=== PATIENT | female | born 1950 | race American Indian/Alaskan Native ===

== ENCOUNTER 2016-12-03 08:57 | Outpatient (CLI) | payer MEDICARE ==
[2016-12-03] MEDS ORDERED: XYLOCAINE TOPICAL 4% TP ONE ×2 (09:16→15:47)
== END 2016-12-03 08:58 | disposition home or self-care (01) ==
LOC: WOUND 08:57
PROVIDERS: ATTEND Orthopaedic Surgery
DX: L02.31 Cutaneous abscess of buttock (principal); E11.9 Type 2 diabetes mellitus without complications; I25.10 Atherosclerotic heart disease of native coronary artery without angina pectoris; I10 Essential (primary) hypertension; Z87.891 Personal history of nicotine dependence

== ENCOUNTER 2016-12-07 09:09 | Outpatient (CLI) | payer MEDICARE ==
[2016-12-07] MEDS ORDERED: XYLOCAINE TOPICAL 4% TP ONE ×2 (09:53→10:04)
== END 2016-12-07 09:10 | disposition home or self-care (01) ==
LOC: WOUND 09:09
PROVIDERS: ATTEND Orthopaedic Surgery
DX: L02.31 Cutaneous abscess of buttock (principal); E11.9 Type 2 diabetes mellitus without complications; I25.10 Atherosclerotic heart disease of native coronary artery without angina pectoris; I10 Essential (primary) hypertension; Z87.891 Personal history of nicotine dependence

== ENCOUNTER 2016-12-14 09:26 | Outpatient (CLI) | payer MEDICARE ==
[2016-12-14] MEDS ORDERED: XYLOCAINE TOPICAL 2% TP ONE ×2 (09:52→14:12)
== END 2016-12-14 09:27 | disposition home or self-care (01) ==
LOC: WOUND 09:26
PROVIDERS: ATTEND Orthopaedic Surgery
DX: L02.31 Cutaneous abscess of buttock (principal); K61.1 Rectal abscess; E11.9 Type 2 diabetes mellitus without complications; I10 Essential (primary) hypertension; I25.10 Atherosclerotic heart disease of native coronary artery without angina pectoris; Z87.891 Personal history of nicotine dependence

== ENCOUNTER 2016-12-28 09:17 | Outpatient (CLI) | payer MEDICARE ==
[2016-12-28] MEDS ORDERED: XYLOCAINE TOPICAL 2% TP ONE ×2 (09:46→12:18)
== END 2016-12-28 09:18 | disposition home or self-care (01) ==
LOC: WOUND 09:17
PROVIDERS: ATTEND Internal Medicine
DX: L02.212 Cutaneous abscess of back [any part, except buttock and flank] (principal); L89.304 Pressure ulcer of unspecified buttock, stage 4; E11.9 Type 2 diabetes mellitus without complications; I10 Essential (primary) hypertension; E66.01 Morbid (severe) obesity due to excess calories; K59.00 Constipation, unspecified; I25.10 Atherosclerotic heart disease of native coronary artery without angina pectoris; E78.5 Hyperlipidemia, unspecified; Z87.891 Personal history of nicotine dependence

== ENCOUNTER 2017-01-04 09:03 | Outpatient (CLI) | payer MEDICARE ==
[2017-01-04] MEDS ORDERED: XYLOCAINE TOPICAL 2% TP ONE ×2 (09:21→11:18)
== END 2017-01-04 09:04 | disposition home or self-care (01) ==
LOC: WOUND 09:03
PROVIDERS: ATTEND Internal Medicine
DX: K61.1 Rectal abscess (principal); L89.304 Pressure ulcer of unspecified buttock, stage 4; I10 Essential (primary) hypertension; E08.8 Diabetes mellitus due to underlying condition with unspecified complications; E66.01 Morbid (severe) obesity due to excess calories; K59.00 Constipation, unspecified; I25.10 Atherosclerotic heart disease of native coronary artery without angina pectoris; E78.5 Hyperlipidemia, unspecified; Z87.891 Personal history of nicotine dependence

== ENCOUNTER 2017-01-11 09:12 | Outpatient (CLI) | payer MEDICARE ==
[2017-01-11] MEDS ORDERED: XYLOCAINE TOPICAL 4% TP ONE ×2 (10:25→10:29)
== END 2017-01-11 09:13 | disposition home or self-care (01) ==
LOC: WOUND 09:12
PROVIDERS: ATTEND Internal Medicine
DX: L89.304 Pressure ulcer of unspecified buttock, stage 4 (principal); I10 Essential (primary) hypertension; E08.8 Diabetes mellitus due to underlying condition with unspecified complications; E66.01 Morbid (severe) obesity due to excess calories; K59.00 Constipation, unspecified; K61.1 Rectal abscess; I25.10 Atherosclerotic heart disease of native coronary artery without angina pectoris; E78.2 Mixed hyperlipidemia; Z87.891 Personal history of nicotine dependence

== ENCOUNTER 2017-01-18 09:26 | Outpatient (CLI) | payer MEDICARE ==
[2017-01-18] MEDS ORDERED: XYLOCAINE TOPICAL 4% TP ONE ×2 (10:07→16:10)
== END 2017-01-18 09:27 | disposition home or self-care (01) ==
LOC: WOUND 09:26
PROVIDERS: ATTEND Internal Medicine
DX: L89.304 Pressure ulcer of unspecified buttock, stage 4 (principal); E08.8 Diabetes mellitus due to underlying condition with unspecified complications; I10 Essential (primary) hypertension; E66.01 Morbid (severe) obesity due to excess calories; K59.00 Constipation, unspecified; I25.10 Atherosclerotic heart disease of native coronary artery without angina pectoris; E78.2 Mixed hyperlipidemia; Z87.891 Personal history of nicotine dependence

== ENCOUNTER 2017-01-25 09:00 | Outpatient (CLI) | payer MEDICARE ==
[2017-01-25] MEDS ORDERED: XYLOCAINE TOPICAL 4% TP ONE ×2 (09:15→10:00)
== END 2017-01-25 09:01 | disposition home or self-care (01) ==
LOC: WOUND 09:00
PROVIDERS: ATTEND Internal Medicine
DX: L02.31 Cutaneous abscess of buttock (principal); E66.01 Morbid (severe) obesity due to excess calories; I10 Essential (primary) hypertension; E11.9 Type 2 diabetes mellitus without complications; I25.10 Atherosclerotic heart disease of native coronary artery without angina pectoris; E78.5 Hyperlipidemia, unspecified; Z87.891 Personal history of nicotine dependence

== ENCOUNTER 2017-02-08 09:04 | Outpatient (CLI) | payer MEDICARE ==
[2017-02-08] MEDS ORDERED: XYLOCAINE TOPICAL 4% TP ONE ×2 (09:19→10:12)
== END 2017-02-08 09:05 | disposition home or self-care (01) ==
LOC: WOUND 09:04
PROVIDERS: ATTEND Internal Medicine
DX: L89.304 Pressure ulcer of unspecified buttock, stage 4 (principal); K61.1 Rectal abscess; I10 Essential (primary) hypertension; E66.01 Morbid (severe) obesity due to excess calories; K59.00 Constipation, unspecified; I25.10 Atherosclerotic heart disease of native coronary artery without angina pectoris; E78.2 Mixed hyperlipidemia; Z87.891 Personal history of nicotine dependence

== ENCOUNTER 2017-02-17 08:56 | Outpatient (CLI) | payer MEDICARE ==
[2017-02-17] MEDS ORDERED: XYLOCAINE TOPICAL 4% TP ONE ×2 (09:13→10:00)
== END 2017-02-17 08:57 | disposition home or self-care (01) ==
LOC: WOUND 08:56
PROVIDERS: ATTEND Internal Medicine
DX: K61.1 Rectal abscess (principal); L89.304 Pressure ulcer of unspecified buttock, stage 4; E66.01 Morbid (severe) obesity due to excess calories; I25.10 Atherosclerotic heart disease of native coronary artery without angina pectoris; E78.5 Hyperlipidemia, unspecified; I10 Essential (primary) hypertension; Z87.891 Personal history of nicotine dependence

== ENCOUNTER 2017-02-22 09:03 | Outpatient (CLI) | payer MEDICARE ==
[2017-02-22] MEDS ORDERED: XYLOCAINE TOPICAL 2% ONE (10:12)
[2017-02-22] MEDS ORDERED: XYLOCAINE TOPICAL 2% TP ONE (10:40)
== END 2017-02-22 09:04 | disposition home or self-care (01) ==
LOC: WOUND 09:03
PROVIDERS: ATTEND Internal Medicine
DX: L02.31 Cutaneous abscess of buttock (principal); E11.9 Type 2 diabetes mellitus without complications; I10 Essential (primary) hypertension; E66.01 Morbid (severe) obesity due to excess calories; L89.304 Pressure ulcer of unspecified buttock, stage 4; K59.00 Constipation, unspecified; I25.10 Atherosclerotic heart disease of native coronary artery without angina pectoris; E78.5 Hyperlipidemia, unspecified

== ENCOUNTER 2017-03-01 09:07 | Outpatient (CLI) | payer MEDICARE ==
[2017-03-01] MEDS ORDERED: XYLOCAINE TOPICAL 2% ONE (09:10)
== END 2017-03-01 09:08 | disposition home or self-care (01) ==
LOC: WOUND 09:07
PROVIDERS: ATTEND Internal Medicine
DX: K61.1 Rectal abscess (principal); L89.304 Pressure ulcer of unspecified buttock, stage 4; I10 Essential (primary) hypertension; E08.8 Diabetes mellitus due to underlying condition with unspecified complications; E66.01 Morbid (severe) obesity due to excess calories; K59.00 Constipation, unspecified; I25.10 Atherosclerotic heart disease of native coronary artery without angina pectoris; E78.5 Hyperlipidemia, unspecified; Z87.891 Personal history of nicotine dependence

== ENCOUNTER 2017-03-08 09:21 | Outpatient (CLI) | payer MEDICARE ==
[2017-03-08] MEDS ORDERED: XYLOCAINE TOPICAL 2% TP ONE ×2 (10:13→10:37)
== END 2017-03-08 09:22 | disposition home or self-care (01) ==
LOC: WOUND 09:21
PROVIDERS: ATTEND Internal Medicine
DX: L02.31 Cutaneous abscess of buttock (principal); I10 Essential (primary) hypertension; L89.304 Pressure ulcer of unspecified buttock, stage 4; E66.01 Morbid (severe) obesity due to excess calories; I25.10 Atherosclerotic heart disease of native coronary artery without angina pectoris; E78.5 Hyperlipidemia, unspecified; Z87.891 Personal history of nicotine dependence

== ENCOUNTER 2017-03-17 08:52 | Outpatient (CLI) | payer MEDICARE ==
--- NOTE | 2017-03-17 10:49 | Mammography Report ---
BILATERAL MAMMOGRAM with CAD: HISTORY:Cancer screening. Comparison study is dated September 24, 2014. FINDINGS: The breasts are almost entirely fat (<25% glandular). No mass, distortion, suspicious calcification, or skin change is seen. A few bilateral calcifications are stable and demonstrate benign radiographic features. A small nodular asymmetry seen in the lower medial left breast on the previous study has resolved. IMPRESSION: Negative mammogram. There is no mammographic evidence of malignancy. RECOMMENDATION: Follow-up per ACS guidelines. BI-RADS CATEGORY: 1 = Negative ACR BI-RADS MAMMOGRAPHIC CODES: 0 = Needs additional imaging evaluation; 1 = Negative; 2 = Benign; 3 = Probably benign; 4 = Suspicious; 5 = Malignant; 6 = Known biopsy-proven malignancy COMMENT: 1. Dense breast tissue, i.e., adenosis, fibrocystic changes, etc., may obscure an underlying neoplasm. 2. Approximately 10% of cancers are not detected with mammography. 3. A negative mammography report should not delay biopsy if a clinically suspicious mass is present. COMMENT: Patient follow-up letters are generated in [employer].
== END 2017-03-17 08:53 | disposition home or self-care (01) ==
LOC: MAMMO 08:52
PROVIDERS: ATTEND Internal Medicine
DX: Z12.31 Encounter for screening mammogram for malignant neoplasm of breast (principal)
CPT/HCPCS: 77067; G0202

== ENCOUNTER 2017-03-22 09:15 | Outpatient (CLI) | payer MEDICARE ==
[2017-03-22] MEDS ORDERED: XYLOCAINE TOPICAL 2% ONE (09:22)
[2017-03-22] MEDS ORDERED: SILVER NITRATE TP ONE ×2 (09:43→17:30)
[2017-03-22] MEDS ORDERED: XYLOCAINE TOPICAL 2% TP ONE (17:29)
[2017-03-24] MEDS ORDERED: SILVER NITRATE TP ONE (15:33)
== END 2017-03-22 09:16 | disposition home or self-care (01) ==
LOC: WOUND 09:15
PROVIDERS: ATTEND Surgery
DX: L02.31 Cutaneous abscess of buttock (principal); K61.1 Rectal abscess; L89.304 Pressure ulcer of unspecified buttock, stage 4; I10 Essential (primary) hypertension; E66.01 Morbid (severe) obesity due to excess calories; K59.00 Constipation, unspecified; E11.9 Type 2 diabetes mellitus without complications; I25.10 Atherosclerotic heart disease of native coronary artery without angina pectoris; E78.5 Hyperlipidemia, unspecified; Z87.891 Personal history of nicotine dependence
CPT/HCPCS: 17250

== ENCOUNTER 2017-03-29 09:13 | Outpatient (CLI) | payer MEDICARE ==
[2017-03-29] MEDS ORDERED: XYLOCAINE TOPICAL 4% TP ONE ×2 (09:26→09:47)
== END 2017-03-29 09:14 | disposition home or self-care (01) ==
LOC: WOUND 09:13
PROVIDERS: ATTEND Internal Medicine
DX: K61.1 Rectal abscess (principal); L89.304 Pressure ulcer of unspecified buttock, stage 4; E66.01 Morbid (severe) obesity due to excess calories; K59.00 Constipation, unspecified; E11.9 Type 2 diabetes mellitus without complications; I25.10 Atherosclerotic heart disease of native coronary artery without angina pectoris; I10 Essential (primary) hypertension; E78.5 Hyperlipidemia, unspecified; K59.09 Other constipation; Z90.710 Acquired absence of both cervix and uterus; Z87.891 Personal history of nicotine dependence

== ENCOUNTER 2017-04-05 09:41 | Outpatient (CLI) | payer MEDICARE ==
[2017-04-05] MEDS ORDERED: XYLOCAINE TOPICAL 4% TP ONE ×2 (10:15→10:41)
== END 2017-04-05 09:42 | disposition home or self-care (01) ==
LOC: WOUND 09:41
PROVIDERS: ATTEND Internal Medicine
DX: K61.1 Rectal abscess (principal); L89.304 Pressure ulcer of unspecified buttock, stage 4; E66.01 Morbid (severe) obesity due to excess calories; E11.9 Type 2 diabetes mellitus without complications; I10 Essential (primary) hypertension; I25.10 Atherosclerotic heart disease of native coronary artery without angina pectoris; E78.5 Hyperlipidemia, unspecified; Z68.33 Body mass index [BMI] 33.0-33.9, adult; Z87.891 Personal history of nicotine dependence

== ENCOUNTER 2017-04-12 08:52 | Outpatient (CLI) | payer MEDICARE ==
[2017-04-12] MEDS ORDERED: XYLOCAINE TOPICAL 4% TP ONE ×2 (09:10→09:29)
== END 2017-04-12 08:53 | disposition home or self-care (01) ==
LOC: WOUND 08:52
PROVIDERS: ATTEND Internal Medicine
DX: L89.324 Pressure ulcer of left buttock, stage 4 (principal); E66.01 Morbid (severe) obesity due to excess calories; K59.00 Constipation, unspecified; E11.622 Type 2 diabetes mellitus with other skin ulcer; I25.10 Atherosclerotic heart disease of native coronary artery without angina pectoris; E78.5 Hyperlipidemia, unspecified; K59.09 Other constipation; I10 Essential (primary) hypertension; Z90.710 Acquired absence of both cervix and uterus; Z87.891 Personal history of nicotine dependence

== ENCOUNTER 2017-04-17 10:42 | Outpatient (CLI) | payer MEDICARE ==
--- NOTE | 2017-04-17 13:41 | Magnetic Resonance Report ---
MRI SACRUM WITHOUT CONTRAST: 04/17/17 CLINICAL: Low back pain and suspected osteomyelitis of the sacrum. COMPARISON :CT abdomen and pelvis without contrast 04/09/16 TECHNIQUE: Sagittal and coronal T1 and sagittal, coronal and axial T2 fat sat sequences on a 1.5 Lola magnet without contrast. FINDINGS: The coccyx has either been surgically resected or has lysed. A sacral decubitus ulcer extends to the sacrum which terminates just inferior to the fourth sacral foramina. The overall marrow signal of the sacrum is normal. No marrow edema or fracture. No fluid collection or abscess. A right gluteal soft tissue ulcer extends to the sacrum and has mild hyperintense signal on the T2 fat-sat sequence. It also extends anterior to the presacral space where there is hyperintense signal but no fluid collection to suggest an abscess. IMPRESSION: Absence of the coccyx and the distal portion of the sacrum but no definitive signs of osteomyelitis. A sacral decubitus ulcer with mild inflammatory changes in the soft tissue but no abscess.
== END 2017-04-17 10:43 | disposition home or self-care (01) ==
LOC: MRI 10:42
PROVIDERS: ATTEND Internal Medicine
DX: M54.9 Dorsalgia, unspecified (principal)
CPT/HCPCS: 72195

== ENCOUNTER 2017-04-19 08:50 | Outpatient (CLI) | payer MEDICARE ==
[2017-04-19] MEDS ORDERED: XYLOCAINE TOPICAL 4% TP ONE ×3 (08:56→09:06)
== END 2017-04-19 08:51 | disposition home or self-care (01) ==
LOC: WOUND 08:50
PROVIDERS: ATTEND Surgery
DX: L89.304 Pressure ulcer of unspecified buttock, stage 4 (principal); E11.9 Type 2 diabetes mellitus without complications; I25.10 Atherosclerotic heart disease of native coronary artery without angina pectoris; E78.5 Hyperlipidemia, unspecified; E66.01 Morbid (severe) obesity due to excess calories; I10 Essential (primary) hypertension; Z68.33 Body mass index [BMI] 33.0-33.9, adult; Z87.891 Personal history of nicotine dependence

== ENCOUNTER 2017-05-10 09:14 | Outpatient (CLI) | payer MEDICARE ==
[2017-05-10] MEDS ORDERED: XYLOCAINE TOPICAL 4% TP ONE (09:34)
== END 2017-05-10 09:15 | disposition home or self-care (01) ==
LOC: WOUND 09:14
PROVIDERS: ATTEND Internal Medicine
DX: L89.324 Pressure ulcer of left buttock, stage 4 (principal); E66.01 Morbid (severe) obesity due to excess calories; I25.10 Atherosclerotic heart disease of native coronary artery without angina pectoris; E78.5 Hyperlipidemia, unspecified; I10 Essential (primary) hypertension; M46.28 Osteomyelitis of vertebra, sacral and sacrococcygeal region; Z68.33 Body mass index [BMI] 33.0-33.9, adult; Z87.891 Personal history of nicotine dependence

== ENCOUNTER 2017-05-17 09:05 | Outpatient (CLI) | payer MEDICARE ==
[2017-05-17] MEDS ORDERED: XYLOCAINE TOPICAL 4% TP ONE (09:11)
== END 2017-05-17 09:06 | disposition home or self-care (01) ==
LOC: WOUND 09:05
PROVIDERS: ATTEND Internal Medicine
DX: L89.324 Pressure ulcer of left buttock, stage 4 (principal); E66.01 Morbid (severe) obesity due to excess calories; I25.10 Atherosclerotic heart disease of native coronary artery without angina pectoris; E78.5 Hyperlipidemia, unspecified; E11.69 Type 2 diabetes mellitus with other specified complication; M46.28 Osteomyelitis of vertebra, sacral and sacrococcygeal region; I10 Essential (primary) hypertension; Z68.33 Body mass index [BMI] 33.0-33.9, adult; Z87.891 Personal history of nicotine dependence
CPT/HCPCS: 97605

== ENCOUNTER 2017-05-24 09:07 | Outpatient (CLI) | payer MEDICARE ==
[2017-05-24] MEDS ORDERED: XYLOCAINE TOPICAL 4% TP ONE (09:32)
== END 2017-05-24 09:08 | disposition home or self-care (01) ==
LOC: WOUND 09:07
PROVIDERS: ATTEND Internal Medicine
DX: E11.622 Type 2 diabetes mellitus with other skin ulcer (principal); L89.304 Pressure ulcer of unspecified buttock, stage 4; E66.01 Morbid (severe) obesity due to excess calories; I25.10 Atherosclerotic heart disease of native coronary artery without angina pectoris; E78.5 Hyperlipidemia, unspecified; E11.69 Type 2 diabetes mellitus with other specified complication; M86.38 Chronic multifocal osteomyelitis, other site; M46.28 Osteomyelitis of vertebra, sacral and sacrococcygeal region; I10 Essential (primary) hypertension; Z90.710 Acquired absence of both cervix and uterus; Z68.33 Body mass index [BMI] 33.0-33.9, adult; Z87.891 Personal history of nicotine dependence
CPT/HCPCS: 97605

== ENCOUNTER 2017-05-31 09:14 | Outpatient (CLI) | payer MEDICARE ==
[2017-05-31] MEDS ORDERED: XYLOCAINE TOPICAL 2% TP ONE (09:54)
[2017-05-31] MEDS ORDERED: XYLOCAINE TOPICAL 2% ONE (10:00)
== END 2017-05-31 09:15 | disposition home or self-care (01) ==
LOC: WOUND 09:14
PROVIDERS: ATTEND Internal Medicine
DX: L02.31 Cutaneous abscess of buttock (principal); E11.622 Type 2 diabetes mellitus with other skin ulcer; L98.491 Non-pressure chronic ulcer of skin of other sites limited to breakdown of skin; L89.304 Pressure ulcer of unspecified buttock, stage 4; E11.69 Type 2 diabetes mellitus with other specified complication; M46.28 Osteomyelitis of vertebra, sacral and sacrococcygeal region; I10 Essential (primary) hypertension; E66.01 Morbid (severe) obesity due to excess calories; K59.00 Constipation, unspecified; I25.10 Atherosclerotic heart disease of native coronary artery without angina pectoris; E78.5 Hyperlipidemia, unspecified; Z90.710 Acquired absence of both cervix and uterus; Z87.891 Personal history of nicotine dependence
CPT/HCPCS: 99214; G0463

== ENCOUNTER 2017-06-07 09:16 | Outpatient (CLI) | payer MEDICARE ==
[2017-06-07] MEDS ORDERED: XYLOCAINE TOPICAL 4% TP ONE (11:00)
== END 2017-06-07 09:17 | disposition home or self-care (01) ==
LOC: WOUND 09:16
PROVIDERS: ATTEND Internal Medicine
DX: L89.304 Pressure ulcer of unspecified buttock, stage 4 (principal); E66.01 Morbid (severe) obesity due to excess calories; I25.10 Atherosclerotic heart disease of native coronary artery without angina pectoris; E78.5 Hyperlipidemia, unspecified; I10 Essential (primary) hypertension; Z68.33 Body mass index [BMI] 33.0-33.9, adult; Z90.710 Acquired absence of both cervix and uterus; Z87.891 Personal history of nicotine dependence

== ENCOUNTER 2017-06-21 09:00 | Outpatient (CLI) | payer MEDICARE ==
[2017-06-21] MEDS ORDERED: XYLOCAINE TOPICAL 4% TP ONE ×2 (09:14→09:42)
== END 2017-06-21 09:01 | disposition home or self-care (01) ==
LOC: WOUND 09:00
PROVIDERS: ATTEND Internal Medicine
DX: E11.622 Type 2 diabetes mellitus with other skin ulcer (principal); L98.491 Non-pressure chronic ulcer of skin of other sites limited to breakdown of skin; L89.154 Pressure ulcer of sacral region, stage 4; L02.31 Cutaneous abscess of buttock; E66.01 Morbid (severe) obesity due to excess calories; I25.10 Atherosclerotic heart disease of native coronary artery without angina pectoris; E78.5 Hyperlipidemia, unspecified; E11.69 Type 2 diabetes mellitus with other specified complication; M86.38 Chronic multifocal osteomyelitis, other site; M46.28 Osteomyelitis of vertebra, sacral and sacrococcygeal region; I10 Essential (primary) hypertension; Z68.33 Body mass index [BMI] 33.0-33.9, adult; Z90.710 Acquired absence of both cervix and uterus; Z87.891 Personal history of nicotine dependence

== ENCOUNTER 2017-06-28 09:20 | Outpatient (CLI) | payer MEDICARE ==
[2017-06-28] MEDS ORDERED: XYLOCAINE TOPICAL 4% TP ONE (10:06)
== END 2017-06-28 09:21 | disposition home or self-care (01) ==
LOC: WOUND 09:20
PROVIDERS: ATTEND Internal Medicine
DX: E11.622 Type 2 diabetes mellitus with other skin ulcer (principal); L98.491 Non-pressure chronic ulcer of skin of other sites limited to breakdown of skin; L89.304 Pressure ulcer of unspecified buttock, stage 4; K61.1 Rectal abscess; E11.69 Type 2 diabetes mellitus with other specified complication; M46.28 Osteomyelitis of vertebra, sacral and sacrococcygeal region; K59.00 Constipation, unspecified; E66.01 Morbid (severe) obesity due to excess calories; L89.159 Pressure ulcer of sacral region, unspecified stage; I25.10 Atherosclerotic heart disease of native coronary artery without angina pectoris; I10 Essential (primary) hypertension; E78.5 Hyperlipidemia, unspecified; Z68.1 Body mass index [BMI] 19.9 or less, adult; Z90.710 Acquired absence of both cervix and uterus; Z87.891 Personal history of nicotine dependence

== ENCOUNTER 2017-07-12 09:20 | Outpatient (CLI) | payer MEDICARE ==
[2017-07-12] MEDS ORDERED: XYLOCAINE TOPICAL 4% TP ONE ×2 (09:41→09:47)
== END 2017-07-12 09:21 | disposition home or self-care (01) ==
LOC: WOUND 09:20
PROVIDERS: ATTEND Internal Medicine
DX: E11.622 Type 2 diabetes mellitus with other skin ulcer (principal); L98.491 Non-pressure chronic ulcer of skin of other sites limited to breakdown of skin; L89.304 Pressure ulcer of unspecified buttock, stage 4; E66.01 Morbid (severe) obesity due to excess calories; I25.10 Atherosclerotic heart disease of native coronary artery without angina pectoris; E78.5 Hyperlipidemia, unspecified; I10 Essential (primary) hypertension; Z90.710 Acquired absence of both cervix and uterus; Z68.35 Body mass index [BMI] 35.0-35.9, adult; Z87.891 Personal history of nicotine dependence

== ENCOUNTER 2017-08-16 09:54 | Outpatient (CLI) | payer MEDICARE ==
[2017-08-16] MEDS ORDERED: XYLOCAINE TOPICAL 4% TP ONE ×2 (10:13→10:22)
== END 2017-08-16 09:55 | disposition home or self-care (01) ==
LOC: WOUND 09:54
PROVIDERS: ATTEND Internal Medicine
DX: L02.31 Cutaneous abscess of buttock (principal); K61.1 Rectal abscess; K59.00 Constipation, unspecified; E66.01 Morbid (severe) obesity due to excess calories; I10 Essential (primary) hypertension; E11.69 Type 2 diabetes mellitus with other specified complication; M86.38 Chronic multifocal osteomyelitis, other site; M46.28 Osteomyelitis of vertebra, sacral and sacrococcygeal region; I25.10 Atherosclerotic heart disease of native coronary artery without angina pectoris; E78.5 Hyperlipidemia, unspecified; Z90.710 Acquired absence of both cervix and uterus; Z87.891 Personal history of nicotine dependence

== ENCOUNTER 2017-08-23 08:59 | Outpatient (CLI) | payer MEDICARE ==
[2017-08-23] MEDS ORDERED: XYLOCAINE TOPICAL 4% TP ONE ×2 (09:16→09:17)
== END 2017-08-23 09:00 | disposition home or self-care (01) ==
LOC: WOUND 08:59
PROVIDERS: ATTEND Internal Medicine
DX: E11.622 Type 2 diabetes mellitus with other skin ulcer (principal); L98.491 Non-pressure chronic ulcer of skin of other sites limited to breakdown of skin; L89.304 Pressure ulcer of unspecified buttock, stage 4; E66.01 Morbid (severe) obesity due to excess calories; I25.10 Atherosclerotic heart disease of native coronary artery without angina pectoris; E78.5 Hyperlipidemia, unspecified; I10 Essential (primary) hypertension; Z90.710 Acquired absence of both cervix and uterus; Z68.37 Body mass index [BMI] 37.0-37.9, adult; Z87.891 Personal history of nicotine dependence

== ENCOUNTER 2017-08-30 09:12 | Outpatient (CLI) | payer MEDICARE ==
[2017-08-30] MEDS ORDERED: XYLOCAINE TOPICAL 4% TP ONE ×2 (09:39→17:00)
== END 2017-08-30 09:13 | disposition home or self-care (01) ==
LOC: WOUND 09:12
PROVIDERS: ATTEND Internal Medicine
DX: K61.1 Rectal abscess (principal); E66.01 Morbid (severe) obesity due to excess calories; E11.69 Type 2 diabetes mellitus with other specified complication; M86.38 Chronic multifocal osteomyelitis, other site; M46.28 Osteomyelitis of vertebra, sacral and sacrococcygeal region; E78.5 Hyperlipidemia, unspecified; I25.10 Atherosclerotic heart disease of native coronary artery without angina pectoris; I10 Essential (primary) hypertension; Z68.31 Body mass index [BMI] 31.0-31.9, adult; Z90.710 Acquired absence of both cervix and uterus; Z87.891 Personal history of nicotine dependence

== ENCOUNTER 2017-08-30 13:13 | Outpatient (CLI) | payer MEDICARE ==
--- NOTE | 2017-08-30 14:33 | XRay Report ---
Chest 2 views: History: Preop. Findings: Normal cardiomediastinal silhouette. Trachea is midline. No consolidation, pneumothorax or pleural effusion. Impression: No acute cardiopulmonary findings.
== END 2017-08-30 13:14 | disposition home or self-care (01) ==
LOC: XRAY 13:13
PROVIDERS: ATTEND Internal Medicine
DX: Z01.818 Encounter for other preprocedural examination (principal)
CPT/HCPCS: 71020

== ENCOUNTER 2017-09-01 09:44 | Outpatient (CLI) | payer MEDICARE | END 2017-09-01 09:45 | disposition home or self-care (01) | LOC: WOUND 09:44 | PROVIDERS: ATTEND Surgery | DX: E11.622 Type 2 diabetes mellitus with other skin ulcer (principal); L98.411 Non-pressure chronic ulcer of buttock limited to breakdown of skin; L89.324 Pressure ulcer of left buttock, stage 4; E66.01 Morbid (severe) obesity due to excess calories; Z68.1 Body mass index [BMI] 19.9 or less, adult; I10 Essential (primary) hypertension; K59.00 Constipation, unspecified; E11.69 Type 2 diabetes mellitus with other specified complication; M86.68 Other chronic osteomyelitis, other site; I25.10 Atherosclerotic heart disease of native coronary artery without angina pectoris; E78.5 Hyperlipidemia, unspecified; M46.28 Osteomyelitis of vertebra, sacral and sacrococcygeal region; Z87.891 Personal history of nicotine dependence; Z90.710 Acquired absence of both cervix and uterus | CPT/HCPCS: 82962; G0277; 99183 ==

== ENCOUNTER 2017-09-02 09:35 | Outpatient (CLI) | payer MEDICARE | END 2017-09-02 09:36 | disposition home or self-care (01) | LOC: WOUND 09:35 | PROVIDERS: ATTEND Nurse Practitioner | DX: E11.622 Type 2 diabetes mellitus with other skin ulcer (principal); L98.491 Non-pressure chronic ulcer of skin of other sites limited to breakdown of skin; L89.304 Pressure ulcer of unspecified buttock, stage 4; E66.01 Morbid (severe) obesity due to excess calories; I25.10 Atherosclerotic heart disease of native coronary artery without angina pectoris; E78.5 Hyperlipidemia, unspecified; I10 Essential (primary) hypertension; E11.69 Type 2 diabetes mellitus with other specified complication; M86.38 Chronic multifocal osteomyelitis, other site; M46.28 Osteomyelitis of vertebra, sacral and sacrococcygeal region; Z68.37 Body mass index [BMI] 37.0-37.9, adult; Z90.710 Acquired absence of both cervix and uterus; Z87.891 Personal history of nicotine dependence | CPT/HCPCS: 82962; G0277; 99183 ==

== ENCOUNTER 2017-09-03 09:40 | Outpatient (CLI) | payer MEDICARE | END 2017-09-03 09:41 | disposition home or self-care (01) | LOC: WOUND 09:40 | PROVIDERS: ATTEND Podiatrist | DX: E11.622 Type 2 diabetes mellitus with other skin ulcer (principal); L98.411 Non-pressure chronic ulcer of buttock limited to breakdown of skin; L89.304 Pressure ulcer of unspecified buttock, stage 4; E66.01 Morbid (severe) obesity due to excess calories; E11.69 Type 2 diabetes mellitus with other specified complication; M86.38 Chronic multifocal osteomyelitis, other site; M46.28 Osteomyelitis of vertebra, sacral and sacrococcygeal region; I25.10 Atherosclerotic heart disease of native coronary artery without angina pectoris; I10 Essential (primary) hypertension; E78.5 Hyperlipidemia, unspecified; Z68.37 Body mass index [BMI] 37.0-37.9, adult; Z90.710 Acquired absence of both cervix and uterus; Z87.891 Personal history of nicotine dependence | CPT/HCPCS: 82962; G0277; 99183 ==

== ENCOUNTER 2017-09-06 09:28 | Outpatient (CLI) | payer MEDICARE ==
[2017-09-06] MEDS ORDERED: XYLOCAINE TOPICAL 4% TP ONE ×2 (10:02→10:07)
== END 2017-09-06 09:29 | disposition home or self-care (01) ==
LOC: WOUND 09:28
PROVIDERS: ATTEND Internal Medicine
DX: E11.622 Type 2 diabetes mellitus with other skin ulcer (principal); L98.411 Non-pressure chronic ulcer of buttock limited to breakdown of skin; L89.304 Pressure ulcer of unspecified buttock, stage 4; E66.01 Morbid (severe) obesity due to excess calories; I10 Essential (primary) hypertension; I25.10 Atherosclerotic heart disease of native coronary artery without angina pectoris; Z68.37 Body mass index [BMI] 37.0-37.9, adult; Z90.710 Acquired absence of both cervix and uterus; Z87.891 Personal history of nicotine dependence

== ENCOUNTER 2017-09-08 09:47 | Outpatient (CLI) | payer MEDICARE | END 2017-09-08 09:48 | disposition home or self-care (01) | LOC: WOUND 09:47 | PROVIDERS: ATTEND Surgery | DX: E11.622 Type 2 diabetes mellitus with other skin ulcer (principal); L98.411 Non-pressure chronic ulcer of buttock limited to breakdown of skin; L89.304 Pressure ulcer of unspecified buttock, stage 4; E66.01 Morbid (severe) obesity due to excess calories; I10 Essential (primary) hypertension; E11.69 Type 2 diabetes mellitus with other specified complication; M86.38 Chronic multifocal osteomyelitis, other site; M46.28 Osteomyelitis of vertebra, sacral and sacrococcygeal region; I25.10 Atherosclerotic heart disease of native coronary artery without angina pectoris; E78.5 Hyperlipidemia, unspecified; Z68.37 Body mass index [BMI] 37.0-37.9, adult; Z90.710 Acquired absence of both cervix and uterus; Z87.891 Personal history of nicotine dependence | CPT/HCPCS: 82962; G0277; 99183 ==

== ENCOUNTER 2017-09-09 09:47 | Outpatient (CLI) | payer MEDICARE | END 2017-09-09 09:48 | disposition home or self-care (01) | LOC: WOUND 09:47 | PROVIDERS: ATTEND Nurse Practitioner | DX: E11.622 Type 2 diabetes mellitus with other skin ulcer (principal); L98.411 Non-pressure chronic ulcer of buttock limited to breakdown of skin; L89.304 Pressure ulcer of unspecified buttock, stage 4; E66.01 Morbid (severe) obesity due to excess calories; I10 Essential (primary) hypertension; E11.69 Type 2 diabetes mellitus with other specified complication; M86.38 Chronic multifocal osteomyelitis, other site; M46.28 Osteomyelitis of vertebra, sacral and sacrococcygeal region; I25.10 Atherosclerotic heart disease of native coronary artery without angina pectoris; E78.5 Hyperlipidemia, unspecified; Z68.37 Body mass index [BMI] 37.0-37.9, adult; Z90.710 Acquired absence of both cervix and uterus; Z87.891 Personal history of nicotine dependence | CPT/HCPCS: 82962; G0277; 99183 ==

== ENCOUNTER 2017-09-13 09:39 | Outpatient (CLI) | payer MEDICARE ==
[2017-09-13] MEDS ORDERED: XYLOCAINE TOPICAL 4% TP ONE ×2 (09:54→10:00)
== END 2017-09-13 09:40 | disposition home or self-care (01) ==
LOC: WOUND 09:39
PROVIDERS: ATTEND Internal Medicine
DX: E11.622 Type 2 diabetes mellitus with other skin ulcer (principal); L98.411 Non-pressure chronic ulcer of buttock limited to breakdown of skin; L89.304 Pressure ulcer of unspecified buttock, stage 4; I10 Essential (primary) hypertension; E66.01 Morbid (severe) obesity due to excess calories; K59.00 Constipation, unspecified; E11.69 Type 2 diabetes mellitus with other specified complication; M86.38 Chronic multifocal osteomyelitis, other site; M46.28 Osteomyelitis of vertebra, sacral and sacrococcygeal region; I25.10 Atherosclerotic heart disease of native coronary artery without angina pectoris; Z90.710 Acquired absence of both cervix and uterus; Z87.891 Personal history of nicotine dependence
CPT/HCPCS: 11042; 82962; G0277; 99183

== ENCOUNTER 2017-09-14 09:35 | Outpatient (CLI) | payer MEDICARE | END 2017-09-14 09:36 | disposition home or self-care (01) | LOC: WOUND 09:35 | PROVIDERS: ATTEND Surgery | DX: E11.622 Type 2 diabetes mellitus with other skin ulcer (principal); L98.411 Non-pressure chronic ulcer of buttock limited to breakdown of skin; L89.324 Pressure ulcer of left buttock, stage 4; I10 Essential (primary) hypertension; K59.00 Constipation, unspecified; E66.01 Morbid (severe) obesity due to excess calories; E11.69 Type 2 diabetes mellitus with other specified complication; M86.38 Chronic multifocal osteomyelitis, other site; M46.28 Osteomyelitis of vertebra, sacral and sacrococcygeal region; K61.1 Rectal abscess; I25.10 Atherosclerotic heart disease of native coronary artery without angina pectoris; E78.5 Hyperlipidemia, unspecified; Z87.891 Personal history of nicotine dependence; Z90.710 Acquired absence of both cervix and uterus | CPT/HCPCS: 82962; G0277; 99183 ==

== ENCOUNTER 2017-09-15 09:22 | Outpatient (CLI) | payer MEDICARE | END 2017-09-15 09:23 | disposition home or self-care (01) | LOC: WOUND 09:22 | PROVIDERS: ATTEND Surgery | DX: E11.622 Type 2 diabetes mellitus with other skin ulcer (principal); L98.491 Non-pressure chronic ulcer of skin of other sites limited to breakdown of skin; L89.304 Pressure ulcer of unspecified buttock, stage 4; E66.01 Morbid (severe) obesity due to excess calories; E11.69 Type 2 diabetes mellitus with other specified complication; M86.38 Chronic multifocal osteomyelitis, other site; M46.28 Osteomyelitis of vertebra, sacral and sacrococcygeal region; I25.10 Atherosclerotic heart disease of native coronary artery without angina pectoris; E78.5 Hyperlipidemia, unspecified; I10 Essential (primary) hypertension; Z68.37 Body mass index [BMI] 37.0-37.9, adult; Z90.710 Acquired absence of both cervix and uterus; Z87.891 Personal history of nicotine dependence | CPT/HCPCS: 82962; G0277; 99183 ==

== ENCOUNTER 2017-09-16 09:53 | Outpatient (CLI) | payer MEDICARE | END 2017-09-16 09:54 | disposition home or self-care (01) | LOC: WOUND 09:53 | PROVIDERS: ATTEND Surgery | DX: E11.622 Type 2 diabetes mellitus with other skin ulcer (principal); L98.491 Non-pressure chronic ulcer of skin of other sites limited to breakdown of skin; L89.304 Pressure ulcer of unspecified buttock, stage 4; E66.01 Morbid (severe) obesity due to excess calories; E11.69 Type 2 diabetes mellitus with other specified complication; M86.38 Chronic multifocal osteomyelitis, other site; M46.28 Osteomyelitis of vertebra, sacral and sacrococcygeal region; I10 Essential (primary) hypertension; I25.10 Atherosclerotic heart disease of native coronary artery without angina pectoris; E78.5 Hyperlipidemia, unspecified; Z68.37 Body mass index [BMI] 37.0-37.9, adult; Z90.710 Acquired absence of both cervix and uterus; Z87.891 Personal history of nicotine dependence | CPT/HCPCS: 82962; G0277; 99183 ==

== ENCOUNTER 2017-09-17 09:30 | Outpatient (CLI) | payer MEDICARE | END 2017-09-17 09:31 | disposition home or self-care (01) | LOC: WOUND 09:30 | PROVIDERS: ATTEND Podiatrist | DX: E11.622 Type 2 diabetes mellitus with other skin ulcer (principal); L98.491 Non-pressure chronic ulcer of skin of other sites limited to breakdown of skin; L89.304 Pressure ulcer of unspecified buttock, stage 4; E66.01 Morbid (severe) obesity due to excess calories; E11.69 Type 2 diabetes mellitus with other specified complication; M86.38 Chronic multifocal osteomyelitis, other site; M46.28 Osteomyelitis of vertebra, sacral and sacrococcygeal region; I25.10 Atherosclerotic heart disease of native coronary artery without angina pectoris; E78.5 Hyperlipidemia, unspecified; I10 Essential (primary) hypertension; Z68.37 Body mass index [BMI] 37.0-37.9, adult; Z90.710 Acquired absence of both cervix and uterus; Z87.891 Personal history of nicotine dependence | CPT/HCPCS: 82962; G0277; 99183 ==

== ENCOUNTER 2017-09-20 09:41 | Outpatient (CLI) | payer MEDICARE ==
[2017-09-20] MEDS ORDERED: XYLOCAINE TOPICAL 4% TP ONE (10:00)
== END 2017-09-20 09:42 | disposition home or self-care (01) ==
LOC: WOUND 09:41
PROVIDERS: ATTEND Internal Medicine
DX: E11.622 Type 2 diabetes mellitus with other skin ulcer (principal); L98.491 Non-pressure chronic ulcer of skin of other sites limited to breakdown of skin; L89.304 Pressure ulcer of unspecified buttock, stage 4; E66.01 Morbid (severe) obesity due to excess calories; I10 Essential (primary) hypertension; E11.69 Type 2 diabetes mellitus with other specified complication; M86.38 Chronic multifocal osteomyelitis, other site; M46.28 Osteomyelitis of vertebra, sacral and sacrococcygeal region; I25.10 Atherosclerotic heart disease of native coronary artery without angina pectoris; E78.5 Hyperlipidemia, unspecified; Z68.37 Body mass index [BMI] 37.0-37.9, adult; Z90.710 Acquired absence of both cervix and uterus; Z87.891 Personal history of nicotine dependence
CPT/HCPCS: 11042; 82962; G0277; 99183

== ENCOUNTER 2017-09-21 09:32 | Outpatient (CLI) | payer MEDICARE | END 2017-09-21 09:33 | disposition home or self-care (01) | LOC: WOUND 09:32 | PROVIDERS: ATTEND Surgery | DX: E11.622 Type 2 diabetes mellitus with other skin ulcer (principal); L98.491 Non-pressure chronic ulcer of skin of other sites limited to breakdown of skin; L89.304 Pressure ulcer of unspecified buttock, stage 4; E66.01 Morbid (severe) obesity due to excess calories; E11.69 Type 2 diabetes mellitus with other specified complication; M86.38 Chronic multifocal osteomyelitis, other site; M46.28 Osteomyelitis of vertebra, sacral and sacrococcygeal region; I25.10 Atherosclerotic heart disease of native coronary artery without angina pectoris; I10 Essential (primary) hypertension; E78.5 Hyperlipidemia, unspecified; Z68.37 Body mass index [BMI] 37.0-37.9, adult | CPT/HCPCS: 82962; G0277; 99183 ==

== ENCOUNTER 2017-09-22 09:35 | Outpatient (CLI) | payer MEDICARE | END 2017-09-22 09:36 | disposition home or self-care (01) | LOC: WOUND 09:35 | PROVIDERS: ATTEND Surgery | DX: E11.622 Type 2 diabetes mellitus with other skin ulcer (principal); L98.491 Non-pressure chronic ulcer of skin of other sites limited to breakdown of skin; L89.304 Pressure ulcer of unspecified buttock, stage 4; E66.01 Morbid (severe) obesity due to excess calories; I25.10 Atherosclerotic heart disease of native coronary artery without angina pectoris; E78.5 Hyperlipidemia, unspecified; E11.69 Type 2 diabetes mellitus with other specified complication; M46.28 Osteomyelitis of vertebra, sacral and sacrococcygeal region; M86.38 Chronic multifocal osteomyelitis, other site; I10 Essential (primary) hypertension; Z68.37 Body mass index [BMI] 37.0-37.9, adult; Z90.710 Acquired absence of both cervix and uterus; Z87.891 Personal history of nicotine dependence | CPT/HCPCS: 82962; G0277; 99183 ==

== ENCOUNTER 2017-09-24 09:36 | Outpatient (CLI) | payer MEDICARE | END 2017-09-24 09:37 | disposition home or self-care (01) | LOC: WOUND 09:36 | PROVIDERS: ATTEND Podiatrist | DX: E11.622 Type 2 diabetes mellitus with other skin ulcer (principal); L98.411 Non-pressure chronic ulcer of buttock limited to breakdown of skin; L89.304 Pressure ulcer of unspecified buttock, stage 4; E66.01 Morbid (severe) obesity due to excess calories; I10 Essential (primary) hypertension; I25.10 Atherosclerotic heart disease of native coronary artery without angina pectoris; E78.5 Hyperlipidemia, unspecified; E11.69 Type 2 diabetes mellitus with other specified complication; M46.28 Osteomyelitis of vertebra, sacral and sacrococcygeal region; M86.38 Chronic multifocal osteomyelitis, other site; Z68.37 Body mass index [BMI] 37.0-37.9, adult; Z90.710 Acquired absence of both cervix and uterus; Z87.891 Personal history of nicotine dependence | CPT/HCPCS: 82962; G0277; 99183 ==

== ENCOUNTER 2017-09-28 09:31 | Outpatient (CLI) | payer MEDICARE | END 2017-09-28 09:32 | disposition home or self-care (01) | LOC: WOUND 09:31 | PROVIDERS: ATTEND Surgery | DX: E11.622 Type 2 diabetes mellitus with other skin ulcer (principal); L98.411 Non-pressure chronic ulcer of buttock limited to breakdown of skin; L89.304 Pressure ulcer of unspecified buttock, stage 4; E66.01 Morbid (severe) obesity due to excess calories; I25.10 Atherosclerotic heart disease of native coronary artery without angina pectoris; E11.69 Type 2 diabetes mellitus with other specified complication; M86.38 Chronic multifocal osteomyelitis, other site; M46.28 Osteomyelitis of vertebra, sacral and sacrococcygeal region; I10 Essential (primary) hypertension; Z90.710 Acquired absence of both cervix and uterus; Z68.37 Body mass index [BMI] 37.0-37.9, adult; Z87.891 Personal history of nicotine dependence | CPT/HCPCS: 82962; G0277; 99183 ==

== ENCOUNTER 2017-09-29 09:33 | Outpatient (CLI) | payer MEDICARE | END 2017-09-29 09:34 | disposition home or self-care (01) | LOC: WOUND 09:33 | PROVIDERS: ATTEND Surgery | DX: E11.622 Type 2 diabetes mellitus with other skin ulcer (principal); L98.491 Non-pressure chronic ulcer of skin of other sites limited to breakdown of skin; L89.304 Pressure ulcer of unspecified buttock, stage 4; E66.01 Morbid (severe) obesity due to excess calories; E11.69 Type 2 diabetes mellitus with other specified complication; M86.38 Chronic multifocal osteomyelitis, other site; M46.28 Osteomyelitis of vertebra, sacral and sacrococcygeal region; I25.10 Atherosclerotic heart disease of native coronary artery without angina pectoris; E78.5 Hyperlipidemia, unspecified; I10 Essential (primary) hypertension; Z68.37 Body mass index [BMI] 37.0-37.9, adult; Z90.710 Acquired absence of both cervix and uterus; Z87.891 Personal history of nicotine dependence | CPT/HCPCS: 82962; G0277; 99183 ==

== ENCOUNTER 2017-10-08 09:40 | Outpatient (CLI) | payer MEDICARE | END 2017-10-08 09:41 | disposition home or self-care (01) | LOC: WOUND 09:40 | PROVIDERS: ATTEND Internal Medicine | DX: E11.622 Type 2 diabetes mellitus with other skin ulcer (principal); L98.411 Non-pressure chronic ulcer of buttock limited to breakdown of skin; L89.304 Pressure ulcer of unspecified buttock, stage 4; E66.01 Morbid (severe) obesity due to excess calories; I10 Essential (primary) hypertension; E11.69 Type 2 diabetes mellitus with other specified complication; M86.38 Chronic multifocal osteomyelitis, other site; M46.28 Osteomyelitis of vertebra, sacral and sacrococcygeal region; I25.10 Atherosclerotic heart disease of native coronary artery without angina pectoris; E78.5 Hyperlipidemia, unspecified; Z68.37 Body mass index [BMI] 37.0-37.9, adult | CPT/HCPCS: 82962; G0277; 99183 ==

== ENCOUNTER 2017-10-11 09:32 | Outpatient (CLI) | payer MEDICARE ==
[2017-10-11] MEDS ORDERED: XYLOCAINE TOPICAL 4% TP ONE (10:32)
== END 2017-10-11 09:33 | disposition home or self-care (01) ==
LOC: WOUND 09:32
PROVIDERS: ATTEND Internal Medicine
DX: E11.622 Type 2 diabetes mellitus with other skin ulcer (principal); L98.491 Non-pressure chronic ulcer of skin of other sites limited to breakdown of skin; L89.304 Pressure ulcer of unspecified buttock, stage 4; E66.01 Morbid (severe) obesity due to excess calories; E11.69 Type 2 diabetes mellitus with other specified complication; M86.38 Chronic multifocal osteomyelitis, other site; M46.28 Osteomyelitis of vertebra, sacral and sacrococcygeal region; I10 Essential (primary) hypertension; Z68.37 Body mass index [BMI] 37.0-37.9, adult
CPT/HCPCS: 11042; 82962; G0277; 99183

== ENCOUNTER 2017-10-12 09:33 | Outpatient (CLI) | payer MEDICARE | END 2017-10-12 09:34 | disposition home or self-care (01) | LOC: WOUND 09:33 | PROVIDERS: ATTEND Surgery | DX: E11.622 Type 2 diabetes mellitus with other skin ulcer (principal); L98.411 Non-pressure chronic ulcer of buttock limited to breakdown of skin; L89.304 Pressure ulcer of unspecified buttock, stage 4; E66.01 Morbid (severe) obesity due to excess calories; E11.69 Type 2 diabetes mellitus with other specified complication; M86.38 Chronic multifocal osteomyelitis, other site; M46.28 Osteomyelitis of vertebra, sacral and sacrococcygeal region; I25.10 Atherosclerotic heart disease of native coronary artery without angina pectoris; I10 Essential (primary) hypertension; E78.5 Hyperlipidemia, unspecified; Z68.37 Body mass index [BMI] 37.0-37.9, adult; Z90.710 Acquired absence of both cervix and uterus; Z87.891 Personal history of nicotine dependence | CPT/HCPCS: 82962; G0277; 99183 ==

== ENCOUNTER 2017-10-14 09:51 | Outpatient (CLI) | payer MEDICARE | END 2017-10-14 09:52 | disposition home or self-care (01) | LOC: WOUND 09:51 | PROVIDERS: ATTEND Surgery | DX: E11.622 Type 2 diabetes mellitus with other skin ulcer (principal); L98.411 Non-pressure chronic ulcer of buttock limited to breakdown of skin; L89.304 Pressure ulcer of unspecified buttock, stage 4; E66.01 Morbid (severe) obesity due to excess calories; I25.10 Atherosclerotic heart disease of native coronary artery without angina pectoris; E78.5 Hyperlipidemia, unspecified; I10 Essential (primary) hypertension; E11.69 Type 2 diabetes mellitus with other specified complication; M86.38 Chronic multifocal osteomyelitis, other site; M46.28 Osteomyelitis of vertebra, sacral and sacrococcygeal region; Z90.710 Acquired absence of both cervix and uterus; Z87.891 Personal history of nicotine dependence | CPT/HCPCS: 82962; G0277; 99183 ==

== ENCOUNTER 2017-10-15 09:39 | Outpatient (CLI) | payer MEDICARE | END 2017-10-15 09:40 | disposition home or self-care (01) | LOC: WOUND 09:39 | PROVIDERS: ATTEND Internal Medicine | DX: E11.622 Type 2 diabetes mellitus with other skin ulcer (principal); L98.411 Non-pressure chronic ulcer of buttock limited to breakdown of skin; L89.304 Pressure ulcer of unspecified buttock, stage 4; E66.01 Morbid (severe) obesity due to excess calories; E11.69 Type 2 diabetes mellitus with other specified complication; I10 Essential (primary) hypertension; M86.38 Chronic multifocal osteomyelitis, other site; M46.28 Osteomyelitis of vertebra, sacral and sacrococcygeal region; E78.5 Hyperlipidemia, unspecified; Z68.37 Body mass index [BMI] 37.0-37.9, adult; Z90.710 Acquired absence of both cervix and uterus; Z87.891 Personal history of nicotine dependence | CPT/HCPCS: 82962; G0277; 99183 ==

== ENCOUNTER 2017-10-18 09:32 | Outpatient (CLI) | payer MEDICARE ==
[2017-10-18] MEDS ORDERED: XYLOCAINE TOPICAL 4% TP ONE (10:01)
== END 2017-10-18 09:33 | disposition home or self-care (01) ==
LOC: WOUND 09:32
PROVIDERS: ATTEND Internal Medicine
DX: E11.622 Type 2 diabetes mellitus with other skin ulcer (principal); L98.411 Non-pressure chronic ulcer of buttock limited to breakdown of skin; L89.304 Pressure ulcer of unspecified buttock, stage 4; E66.01 Morbid (severe) obesity due to excess calories; I10 Essential (primary) hypertension; E11.69 Type 2 diabetes mellitus with other specified complication; M86.38 Chronic multifocal osteomyelitis, other site; M46.28 Osteomyelitis of vertebra, sacral and sacrococcygeal region; I25.10 Atherosclerotic heart disease of native coronary artery without angina pectoris; E78.5 Hyperlipidemia, unspecified; Z90.710 Acquired absence of both cervix and uterus; Z68.37 Body mass index [BMI] 37.0-37.9, adult; Z87.891 Personal history of nicotine dependence
CPT/HCPCS: 11042; 82962; G0277; 99183

== ENCOUNTER 2017-10-19 09:40 | Outpatient (CLI) | payer MEDICARE | END 2017-10-19 09:41 | disposition home or self-care (01) | LOC: WOUND 09:40 | PROVIDERS: ATTEND Surgery | DX: E11.622 Type 2 diabetes mellitus with other skin ulcer (principal); L98.491 Non-pressure chronic ulcer of skin of other sites limited to breakdown of skin; L89.304 Pressure ulcer of unspecified buttock, stage 4; E11.69 Type 2 diabetes mellitus with other specified complication; E66.01 Morbid (severe) obesity due to excess calories; M86.38 Chronic multifocal osteomyelitis, other site; M46.28 Osteomyelitis of vertebra, sacral and sacrococcygeal region; I10 Essential (primary) hypertension; I25.10 Atherosclerotic heart disease of native coronary artery without angina pectoris; E78.5 Hyperlipidemia, unspecified; Z90.710 Acquired absence of both cervix and uterus; Z68.37 Body mass index [BMI] 37.0-37.9, adult; Z87.891 Personal history of nicotine dependence | CPT/HCPCS: 82962; G0277; 99183 ==

== ENCOUNTER 2017-10-20 09:45 | Outpatient (CLI) | payer MEDICARE | END 2017-10-20 09:46 | disposition home or self-care (01) | LOC: WOUND 09:45 | PROVIDERS: ATTEND Surgery | DX: E11.622 Type 2 diabetes mellitus with other skin ulcer (principal); L98.411 Non-pressure chronic ulcer of buttock limited to breakdown of skin; E66.01 Morbid (severe) obesity due to excess calories; L89.304 Pressure ulcer of unspecified buttock, stage 4; E11.69 Type 2 diabetes mellitus with other specified complication; M86.38 Chronic multifocal osteomyelitis, other site; M46.28 Osteomyelitis of vertebra, sacral and sacrococcygeal region; I25.10 Atherosclerotic heart disease of native coronary artery without angina pectoris; E78.5 Hyperlipidemia, unspecified; I10 Essential (primary) hypertension; Z68.37 Body mass index [BMI] 37.0-37.9, adult; Z90.710 Acquired absence of both cervix and uterus; Z87.891 Personal history of nicotine dependence | CPT/HCPCS: 82962; G0277; 99183 ==

== ENCOUNTER 2017-10-25 09:34 | Outpatient (CLI) | payer MEDICARE ==
[2017-10-25] MEDS ORDERED: XYLOCAINE TOPICAL 4% TP ONE (09:41)
== END 2017-10-25 09:35 | disposition home or self-care (01) ==
LOC: WOUND 09:34
PROVIDERS: ATTEND Internal Medicine
DX: E11.622 Type 2 diabetes mellitus with other skin ulcer (principal); L98.411 Non-pressure chronic ulcer of buttock limited to breakdown of skin; L89.304 Pressure ulcer of unspecified buttock, stage 4; E66.01 Morbid (severe) obesity due to excess calories; I25.10 Atherosclerotic heart disease of native coronary artery without angina pectoris; E78.5 Hyperlipidemia, unspecified; E11.69 Type 2 diabetes mellitus with other specified complication; I10 Essential (primary) hypertension; M86.38 Chronic multifocal osteomyelitis, other site; M46.28 Osteomyelitis of vertebra, sacral and sacrococcygeal region; Z68.37 Body mass index [BMI] 37.0-37.9, adult; Z90.710 Acquired absence of both cervix and uterus; Z87.891 Personal history of nicotine dependence
CPT/HCPCS: 11042; 82962; G0277; 99183

== ENCOUNTER 2017-10-26 09:46 | Outpatient (CLI) | payer MEDICARE | END 2017-10-26 09:47 | disposition home or self-care (01) | LOC: WOUND 09:46 | PROVIDERS: ATTEND Surgery | DX: E11.622 Type 2 diabetes mellitus with other skin ulcer (principal); L98.411 Non-pressure chronic ulcer of buttock limited to breakdown of skin; L89.304 Pressure ulcer of unspecified buttock, stage 4; E66.01 Morbid (severe) obesity due to excess calories; E11.69 Type 2 diabetes mellitus with other specified complication; M86.38 Chronic multifocal osteomyelitis, other site; M46.28 Osteomyelitis of vertebra, sacral and sacrococcygeal region; I25.10 Atherosclerotic heart disease of native coronary artery without angina pectoris; I10 Essential (primary) hypertension; E78.5 Hyperlipidemia, unspecified; Z90.710 Acquired absence of both cervix and uterus; Z68.37 Body mass index [BMI] 37.0-37.9, adult; Z87.891 Personal history of nicotine dependence | CPT/HCPCS: 82962; G0277; 99183 ==

== ENCOUNTER 2017-10-27 09:43 | Outpatient (CLI) | payer MEDICARE | END 2017-10-27 09:44 | disposition home or self-care (01) | LOC: WOUND 09:43 | PROVIDERS: ATTEND Surgery | DX: E11.622 Type 2 diabetes mellitus with other skin ulcer (principal); L98.411 Non-pressure chronic ulcer of buttock limited to breakdown of skin; L89.304 Pressure ulcer of unspecified buttock, stage 4; E66.01 Morbid (severe) obesity due to excess calories; E11.69 Type 2 diabetes mellitus with other specified complication; M86.38 Chronic multifocal osteomyelitis, other site; M46.28 Osteomyelitis of vertebra, sacral and sacrococcygeal region; Z68.37 Body mass index [BMI] 37.0-37.9, adult; I25.10 Atherosclerotic heart disease of native coronary artery without angina pectoris; E78.5 Hyperlipidemia, unspecified; Z90.710 Acquired absence of both cervix and uterus; Z87.891 Personal history of nicotine dependence | CPT/HCPCS: 82962; G0277; 99183 ==

== ENCOUNTER 2017-10-28 09:45 | Outpatient (CLI) | payer MEDICARE | END 2017-10-28 09:46 | disposition home or self-care (01) | LOC: WOUND 09:45 | PROVIDERS: ATTEND Nurse Practitioner | DX: E11.622 Type 2 diabetes mellitus with other skin ulcer (principal); L98.411 Non-pressure chronic ulcer of buttock limited to breakdown of skin; L89.304 Pressure ulcer of unspecified buttock, stage 4; E66.01 Morbid (severe) obesity due to excess calories; E11.69 Type 2 diabetes mellitus with other specified complication; M86.38 Chronic multifocal osteomyelitis, other site; M46.28 Osteomyelitis of vertebra, sacral and sacrococcygeal region; I25.10 Atherosclerotic heart disease of native coronary artery without angina pectoris; E78.5 Hyperlipidemia, unspecified; I10 Essential (primary) hypertension; Z68.37 Body mass index [BMI] 37.0-37.9, adult; Z90.710 Acquired absence of both cervix and uterus; Z87.891 Personal history of nicotine dependence | CPT/HCPCS: 82962; G0277; 99183 ==

== ENCOUNTER 2017-10-29 09:56 | Outpatient (CLI) | payer MEDICARE | END 2017-10-29 09:57 | disposition home or self-care (01) | LOC: WOUND 09:56 | PROVIDERS: ATTEND Internal Medicine | DX: E11.622 Type 2 diabetes mellitus with other skin ulcer (principal); K61.1 Rectal abscess; L98.411 Non-pressure chronic ulcer of buttock limited to breakdown of skin; L89.304 Pressure ulcer of unspecified buttock, stage 4; I10 Essential (primary) hypertension; E66.01 Morbid (severe) obesity due to excess calories; M86.38 Chronic multifocal osteomyelitis, other site; M46.28 Osteomyelitis of vertebra, sacral and sacrococcygeal region; I25.10 Atherosclerotic heart disease of native coronary artery without angina pectoris; E78.5 Hyperlipidemia, unspecified; Z90.710 Acquired absence of both cervix and uterus; Z68.37 Body mass index [BMI] 37.0-37.9, adult; Z87.891 Personal history of nicotine dependence | CPT/HCPCS: 82962; G0277; 99183 ==

== ENCOUNTER 2017-11-01 09:29 | Outpatient (CLI) | payer MEDICARE | END 2017-11-01 09:30 | disposition home or self-care (01) | LOC: WOUND 09:29 | PROVIDERS: ATTEND Surgery | DX: E11.622 Type 2 diabetes mellitus with other skin ulcer (principal); L98.411 Non-pressure chronic ulcer of buttock limited to breakdown of skin; L89.304 Pressure ulcer of unspecified buttock, stage 4; E66.01 Morbid (severe) obesity due to excess calories; E11.69 Type 2 diabetes mellitus with other specified complication; M86.38 Chronic multifocal osteomyelitis, other site; M46.28 Osteomyelitis of vertebra, sacral and sacrococcygeal region; I25.10 Atherosclerotic heart disease of native coronary artery without angina pectoris; E78.5 Hyperlipidemia, unspecified; I10 Essential (primary) hypertension; Z68.37 Body mass index [BMI] 37.0-37.9, adult; Z90.710 Acquired absence of both cervix and uterus; Z87.891 Personal history of nicotine dependence | CPT/HCPCS: 82962; G0277; G0463; 99183 ==

== ENCOUNTER 2017-11-02 09:44 | Outpatient (CLI) | payer MEDICARE | END 2017-11-02 09:45 | disposition home or self-care (01) | LOC: WOUND 09:44 | PROVIDERS: ATTEND Surgery | DX: E11.622 Type 2 diabetes mellitus with other skin ulcer (principal); L98.411 Non-pressure chronic ulcer of buttock limited to breakdown of skin; L89.304 Pressure ulcer of unspecified buttock, stage 4; K61.1 Rectal abscess; I10 Essential (primary) hypertension; E78.5 Hyperlipidemia, unspecified; E66.01 Morbid (severe) obesity due to excess calories; M46.28 Osteomyelitis of vertebra, sacral and sacrococcygeal region; Z87.891 Personal history of nicotine dependence; Z90.710 Acquired absence of both cervix and uterus; Z93.3 Colostomy status; K59.00 Constipation, unspecified; M86.38 Chronic multifocal osteomyelitis, other site; Z68.37 Body mass index [BMI] 37.0-37.9, adult | CPT/HCPCS: 82962; G0277; 99183 ==

== ENCOUNTER 2017-11-03 09:29 | Outpatient (CLI) | payer MEDICARE | END 2017-11-03 09:30 | disposition home or self-care (01) | LOC: WOUND 09:29 | PROVIDERS: ATTEND Surgery | DX: E11.622 Type 2 diabetes mellitus with other skin ulcer (principal); L98.491 Non-pressure chronic ulcer of skin of other sites limited to breakdown of skin; L89.304 Pressure ulcer of unspecified buttock, stage 4; K61.1 Rectal abscess; E66.01 Morbid (severe) obesity due to excess calories; E11.69 Type 2 diabetes mellitus with other specified complication; M86.38 Chronic multifocal osteomyelitis, other site; M46.28 Osteomyelitis of vertebra, sacral and sacrococcygeal region; I25.10 Atherosclerotic heart disease of native coronary artery without angina pectoris; E78.5 Hyperlipidemia, unspecified; I10 Essential (primary) hypertension; Z68.37 Body mass index [BMI] 37.0-37.9, adult; Z90.710 Acquired absence of both cervix and uterus; Z87.891 Personal history of nicotine dependence | CPT/HCPCS: 82962; G0277; 99183 ==

== ENCOUNTER 2017-11-04 09:41 | Outpatient (CLI) | payer MEDICARE | END 2017-11-04 09:42 | disposition home or self-care (01) | LOC: WOUND 09:41 | PROVIDERS: ATTEND Internal Medicine | DX: E11.622 Type 2 diabetes mellitus with other skin ulcer (principal); L98.411 Non-pressure chronic ulcer of buttock limited to breakdown of skin; L89.304 Pressure ulcer of unspecified buttock, stage 4; I10 Essential (primary) hypertension; E66.01 Morbid (severe) obesity due to excess calories; K59.00 Constipation, unspecified; K61.1 Rectal abscess; E11.69 Type 2 diabetes mellitus with other specified complication; M86.38 Chronic multifocal osteomyelitis, other site; M46.28 Osteomyelitis of vertebra, sacral and sacrococcygeal region; I25.10 Atherosclerotic heart disease of native coronary artery without angina pectoris; E78.5 Hyperlipidemia, unspecified; Z68.37 Body mass index [BMI] 37.0-37.9, adult; Z87.891 Personal history of nicotine dependence; Z90.710 Acquired absence of both cervix and uterus; Z93.3 Colostomy status | CPT/HCPCS: 82962; G0277; 99183 ==

== ENCOUNTER 2017-11-08 09:39 | Outpatient (CLI) | payer MEDICARE ==
[2017-11-08] MEDS ORDERED: XYLOCAINE TOPICAL 4% TP ONE ×2 (10:17→10:24)
== END 2017-11-08 09:40 | disposition home or self-care (01) ==
LOC: WOUND 09:39
PROVIDERS: ATTEND Internal Medicine
DX: E11.622 Type 2 diabetes mellitus with other skin ulcer (principal); L98.411 Non-pressure chronic ulcer of buttock limited to breakdown of skin; E66.01 Morbid (severe) obesity due to excess calories; I10 Essential (primary) hypertension; I25.10 Atherosclerotic heart disease of native coronary artery without angina pectoris; E78.5 Hyperlipidemia, unspecified; E11.69 Type 2 diabetes mellitus with other specified complication; M86.38 Chronic multifocal osteomyelitis, other site; M46.28 Osteomyelitis of vertebra, sacral and sacrococcygeal region; Z90.710 Acquired absence of both cervix and uterus; Z68.37 Body mass index [BMI] 37.0-37.9, adult; Z87.891 Personal history of nicotine dependence
CPT/HCPCS: 11042; 82962; G0277; 99183

== ENCOUNTER 2017-11-09 09:43 | Outpatient (CLI) | payer MEDICARE | END 2017-11-09 09:44 | disposition home or self-care (01) | LOC: WOUND 09:43 | PROVIDERS: ATTEND Surgery | DX: E11.622 Type 2 diabetes mellitus with other skin ulcer (principal); L98.411 Non-pressure chronic ulcer of buttock limited to breakdown of skin; L89.304 Pressure ulcer of unspecified buttock, stage 4; E11.69 Type 2 diabetes mellitus with other specified complication; M86.38 Chronic multifocal osteomyelitis, other site; M46.28 Osteomyelitis of vertebra, sacral and sacrococcygeal region; I25.10 Atherosclerotic heart disease of native coronary artery without angina pectoris; E78.5 Hyperlipidemia, unspecified; K61.1 Rectal abscess; E66.01 Morbid (severe) obesity due to excess calories; I10 Essential (primary) hypertension; Z90.710 Acquired absence of both cervix and uterus; Z87.891 Personal history of nicotine dependence; Z68.37 Body mass index [BMI] 37.0-37.9, adult | CPT/HCPCS: 82962; G0277; 99183 ==

== ENCOUNTER 2017-11-10 09:39 | Outpatient (CLI) | payer MEDICARE | END 2017-11-10 09:40 | disposition home or self-care (01) | LOC: WOUND 09:39 | PROVIDERS: ATTEND Surgery | DX: E11.622 Type 2 diabetes mellitus with other skin ulcer (principal); L98.411 Non-pressure chronic ulcer of buttock limited to breakdown of skin; L89.304 Pressure ulcer of unspecified buttock, stage 4; E66.01 Morbid (severe) obesity due to excess calories; E11.69 Type 2 diabetes mellitus with other specified complication; M86.38 Chronic multifocal osteomyelitis, other site; M46.28 Osteomyelitis of vertebra, sacral and sacrococcygeal region; I25.10 Atherosclerotic heart disease of native coronary artery without angina pectoris; E78.5 Hyperlipidemia, unspecified; I10 Essential (primary) hypertension; Z68.37 Body mass index [BMI] 37.0-37.9, adult; Z90.710 Acquired absence of both cervix and uterus; Z87.891 Personal history of nicotine dependence | CPT/HCPCS: 82962; G0277; 99183 ==

== ENCOUNTER 2017-11-12 09:58 | Outpatient (CLI) | payer MEDICARE | END 2017-11-12 09:59 | disposition home or self-care (01) | LOC: WOUND 09:58 | PROVIDERS: ATTEND Internal Medicine | DX: E11.622 Type 2 diabetes mellitus with other skin ulcer (principal); L98.491 Non-pressure chronic ulcer of skin of other sites limited to breakdown of skin; L89.304 Pressure ulcer of unspecified buttock, stage 4; E66.01 Morbid (severe) obesity due to excess calories; E11.69 Type 2 diabetes mellitus with other specified complication; M86.38 Chronic multifocal osteomyelitis, other site; M46.28 Osteomyelitis of vertebra, sacral and sacrococcygeal region; I25.10 Atherosclerotic heart disease of native coronary artery without angina pectoris; E78.5 Hyperlipidemia, unspecified; I10 Essential (primary) hypertension; Z90.710 Acquired absence of both cervix and uterus; Z87.891 Personal history of nicotine dependence; Z68.37 Body mass index [BMI] 37.0-37.9, adult | CPT/HCPCS: 82962; G0277; 99183 ==

== ENCOUNTER 2017-11-15 09:39 | Outpatient (CLI) | payer MEDICARE ==
[2017-11-15] MEDS ORDERED: XYLOCAINE TOPICAL 4% TP ONE ×2 (10:07→11:03)
== END 2017-11-15 09:40 | disposition home or self-care (01) ==
LOC: WOUND 09:39
PROVIDERS: ATTEND Internal Medicine
DX: E11.622 Type 2 diabetes mellitus with other skin ulcer (principal); L98.411 Non-pressure chronic ulcer of buttock limited to breakdown of skin; L89.314 Pressure ulcer of right buttock, stage 4; E11.69 Type 2 diabetes mellitus with other specified complication; M46.28 Osteomyelitis of vertebra, sacral and sacrococcygeal region; M86.38 Chronic multifocal osteomyelitis, other site; I10 Essential (primary) hypertension; E66.01 Morbid (severe) obesity due to excess calories; E78.5 Hyperlipidemia, unspecified; I25.10 Atherosclerotic heart disease of native coronary artery without angina pectoris; Z90.710 Acquired absence of both cervix and uterus
CPT/HCPCS: 11042; 82962; G0277; 99183

== ENCOUNTER 2017-11-16 10:07 | Outpatient (CLI) | payer MEDICARE | END 2017-11-16 10:08 | disposition home or self-care (01) | LOC: WOUND 10:07 | PROVIDERS: ATTEND Surgery | DX: E11.622 Type 2 diabetes mellitus with other skin ulcer (principal); L98.411 Non-pressure chronic ulcer of buttock limited to breakdown of skin; L89.304 Pressure ulcer of unspecified buttock, stage 4; K61.1 Rectal abscess; E11.69 Type 2 diabetes mellitus with other specified complication; M86.38 Chronic multifocal osteomyelitis, other site; M46.28 Osteomyelitis of vertebra, sacral and sacrococcygeal region; E66.01 Morbid (severe) obesity due to excess calories; I10 Essential (primary) hypertension; I25.10 Atherosclerotic heart disease of native coronary artery without angina pectoris; E78.5 Hyperlipidemia, unspecified; Z68.37 Body mass index [BMI] 37.0-37.9, adult; Z90.710 Acquired absence of both cervix and uterus; Z87.891 Personal history of nicotine dependence | CPT/HCPCS: 82962; G0277; 99183 ==

== ENCOUNTER 2017-11-17 09:57 | Outpatient (CLI) | payer MEDICARE | END 2017-11-17 09:58 | disposition home or self-care (01) | LOC: WOUND 09:57 | PROVIDERS: ATTEND Surgery | DX: E11.622 Type 2 diabetes mellitus with other skin ulcer (principal); L98.411 Non-pressure chronic ulcer of buttock limited to breakdown of skin; L89.304 Pressure ulcer of unspecified buttock, stage 4; E11.69 Type 2 diabetes mellitus with other specified complication; M86.38 Chronic multifocal osteomyelitis, other site; M46.28 Osteomyelitis of vertebra, sacral and sacrococcygeal region; E66.01 Morbid (severe) obesity due to excess calories; I10 Essential (primary) hypertension; I25.10 Atherosclerotic heart disease of native coronary artery without angina pectoris; E78.5 Hyperlipidemia, unspecified; Z68.37 Body mass index [BMI] 37.0-37.9, adult; Z90.710 Acquired absence of both cervix and uterus; Z87.891 Personal history of nicotine dependence | CPT/HCPCS: 82962; G0277; 99183 ==

== ENCOUNTER 2017-11-18 09:59 | Outpatient (CLI) | payer MEDICARE | END 2017-11-18 10:00 | disposition home or self-care (01) | LOC: WOUND 09:59 | PROVIDERS: ATTEND Nurse Practitioner | DX: K61.1 Rectal abscess (principal); I10 Essential (primary) hypertension; E11.69 Type 2 diabetes mellitus with other specified complication; M86.38 Chronic multifocal osteomyelitis, other site; M46.28 Osteomyelitis of vertebra, sacral and sacrococcygeal region; I25.10 Atherosclerotic heart disease of native coronary artery without angina pectoris; E78.5 Hyperlipidemia, unspecified; E66.01 Morbid (severe) obesity due to excess calories; F17.200 Nicotine dependence, unspecified, uncomplicated; Z68.37 Body mass index [BMI] 37.0-37.9, adult; Z90.49 Acquired absence of other specified parts of digestive tract | CPT/HCPCS: 82962; G0277; 99183 ==

== ENCOUNTER 2017-11-19 08:20 | Outpatient (CLI) | payer MEDICARE | END 2017-11-19 08:21 | disposition home or self-care (01) | LOC: WOUND 08:20 | PROVIDERS: ATTEND Internal Medicine | DX: K61.1 Rectal abscess (principal); I10 Essential (primary) hypertension; E11.69 Type 2 diabetes mellitus with other specified complication; M46.28 Osteomyelitis of vertebra, sacral and sacrococcygeal region; M86.38 Chronic multifocal osteomyelitis, other site; K59.00 Constipation, unspecified; E78.5 Hyperlipidemia, unspecified; I25.10 Atherosclerotic heart disease of native coronary artery without angina pectoris; E66.01 Morbid (severe) obesity due to excess calories; Z68.37 Body mass index [BMI] 37.0-37.9, adult; Z87.891 Personal history of nicotine dependence; Z90.710 Acquired absence of both cervix and uterus | CPT/HCPCS: 82962; G0277; 99183 ==

== ENCOUNTER 2017-11-24 09:57 | Outpatient (CLI) | payer MEDICARE | END 2017-11-24 09:58 | disposition home or self-care (01) | LOC: WOUND 09:57 | PROVIDERS: ATTEND Surgery | DX: E11.622 Type 2 diabetes mellitus with other skin ulcer (principal); L98.411 Non-pressure chronic ulcer of buttock limited to breakdown of skin; L89.304 Pressure ulcer of unspecified buttock, stage 4; K61.1 Rectal abscess; E66.01 Morbid (severe) obesity due to excess calories; I10 Essential (primary) hypertension; E11.69 Type 2 diabetes mellitus with other specified complication; M86.38 Chronic multifocal osteomyelitis, other site; M46.28 Osteomyelitis of vertebra, sacral and sacrococcygeal region; I25.10 Atherosclerotic heart disease of native coronary artery without angina pectoris; E78.5 Hyperlipidemia, unspecified; Z90.710 Acquired absence of both cervix and uterus; Z68.37 Body mass index [BMI] 37.0-37.9, adult; Z87.891 Personal history of nicotine dependence | CPT/HCPCS: 82962; G0277; 99183 ==

== ENCOUNTER 2017-11-25 10:03 | Outpatient (CLI) | payer MEDICARE | END 2017-11-25 10:04 | disposition home or self-care (01) | LOC: WOUND 10:03 | PROVIDERS: ATTEND Nurse Practitioner | DX: E11.622 Type 2 diabetes mellitus with other skin ulcer (principal); L98.411 Non-pressure chronic ulcer of buttock limited to breakdown of skin; L89.304 Pressure ulcer of unspecified buttock, stage 4; I10 Essential (primary) hypertension; E66.01 Morbid (severe) obesity due to excess calories; I25.10 Atherosclerotic heart disease of native coronary artery without angina pectoris; E78.5 Hyperlipidemia, unspecified; E11.69 Type 2 diabetes mellitus with other specified complication; M46.28 Osteomyelitis of vertebra, sacral and sacrococcygeal region; M86.38 Chronic multifocal osteomyelitis, other site; Z68.37 Body mass index [BMI] 37.0-37.9, adult; Z90.49 Acquired absence of other specified parts of digestive tract; Z87.891 Personal history of nicotine dependence | CPT/HCPCS: 82962; G0277; 99183 ==

== ENCOUNTER 2017-11-26 09:53 | Outpatient (CLI) | payer MEDICARE | END 2017-11-26 09:54 | disposition home or self-care (01) | LOC: WOUND 09:53 | PROVIDERS: ATTEND Internal Medicine | DX: E11.622 Type 2 diabetes mellitus with other skin ulcer (principal); L98.491 Non-pressure chronic ulcer of skin of other sites limited to breakdown of skin; L89.304 Pressure ulcer of unspecified buttock, stage 4; E66.01 Morbid (severe) obesity due to excess calories; E11.69 Type 2 diabetes mellitus with other specified complication; M86.38 Chronic multifocal osteomyelitis, other site; M46.28 Osteomyelitis of vertebra, sacral and sacrococcygeal region; K61.1 Rectal abscess; I10 Essential (primary) hypertension; I25.10 Atherosclerotic heart disease of native coronary artery without angina pectoris; E78.5 Hyperlipidemia, unspecified; Z68.37 Body mass index [BMI] 37.0-37.9, adult; Z90.710 Acquired absence of both cervix and uterus; Z87.891 Personal history of nicotine dependence | CPT/HCPCS: 82962; G0277; 99183 ==

== ENCOUNTER 2017-12-08 09:57 | Outpatient (CLI) | payer MEDICARE | END 2017-12-08 09:58 | disposition home or self-care (01) | LOC: WOUND 09:57 | PROVIDERS: ATTEND Surgery | DX: E11.622 Type 2 diabetes mellitus with other skin ulcer (principal); L89.304 Pressure ulcer of unspecified buttock, stage 4; L98.411 Non-pressure chronic ulcer of buttock limited to breakdown of skin; E11.69 Type 2 diabetes mellitus with other specified complication; M46.28 Osteomyelitis of vertebra, sacral and sacrococcygeal region; M86.38 Chronic multifocal osteomyelitis, other site; K59.00 Constipation, unspecified; I25.10 Atherosclerotic heart disease of native coronary artery without angina pectoris; E78.5 Hyperlipidemia, unspecified; K61.1 Rectal abscess; I10 Essential (primary) hypertension; E66.01 Morbid (severe) obesity due to excess calories; Z68.37 Body mass index [BMI] 37.0-37.9, adult; Z87.891 Personal history of nicotine dependence; Z90.710 Acquired absence of both cervix and uterus | CPT/HCPCS: 82962; G0277; 99183 ==

== ENCOUNTER 2017-12-09 10:11 | Outpatient (CLI) | payer MEDICARE | END 2017-12-09 10:12 | disposition home or self-care (01) | LOC: WOUND 10:11 | PROVIDERS: ATTEND Nurse Practitioner | DX: E11.622 Type 2 diabetes mellitus with other skin ulcer (principal); L89.314 Pressure ulcer of right buttock, stage 4; L98.411 Non-pressure chronic ulcer of buttock limited to breakdown of skin; I10 Essential (primary) hypertension; E11.69 Type 2 diabetes mellitus with other specified complication; M86.38 Chronic multifocal osteomyelitis, other site; M46.28 Osteomyelitis of vertebra, sacral and sacrococcygeal region; I25.10 Atherosclerotic heart disease of native coronary artery without angina pectoris; E78.5 Hyperlipidemia, unspecified; E66.01 Morbid (severe) obesity due to excess calories; Z68.37 Body mass index [BMI] 37.0-37.9, adult; Z87.891 Personal history of nicotine dependence; Z90.710 Acquired absence of both cervix and uterus | CPT/HCPCS: 82962; G0277; 99183 ==

== ENCOUNTER 2017-12-10 09:53 | Outpatient (CLI) | payer MEDICARE | END 2017-12-10 09:54 | disposition home or self-care (01) | LOC: WOUND 09:53 | PROVIDERS: ATTEND Internal Medicine | DX: E11.622 Type 2 diabetes mellitus with other skin ulcer (principal); L98.491 Non-pressure chronic ulcer of skin of other sites limited to breakdown of skin; L89.304 Pressure ulcer of unspecified buttock, stage 4; K61.1 Rectal abscess; E11.69 Type 2 diabetes mellitus with other specified complication; M86.38 Chronic multifocal osteomyelitis, other site; M46.28 Osteomyelitis of vertebra, sacral and sacrococcygeal region; E66.01 Morbid (severe) obesity due to excess calories; I25.10 Atherosclerotic heart disease of native coronary artery without angina pectoris; E78.5 Hyperlipidemia, unspecified; Z90.710 Acquired absence of both cervix and uterus; Z68.37 Body mass index [BMI] 37.0-37.9, adult; Z87.891 Personal history of nicotine dependence | CPT/HCPCS: 82962; G0277; 99183 ==

== ENCOUNTER 2017-12-13 09:38 | Outpatient (CLI) | payer MEDICARE ==
[2017-12-13] MEDS ORDERED: XYLOCAINE TOPICAL 4% TP ONE ×2 (10:11→10:36)
== END 2017-12-13 09:39 | disposition home or self-care (01) ==
LOC: WOUND 09:38
PROVIDERS: ATTEND Internal Medicine
DX: K61.1 Rectal abscess (principal); E11.69 Type 2 diabetes mellitus with other specified complication; M86.68 Other chronic osteomyelitis, other site; M46.28 Osteomyelitis of vertebra, sacral and sacrococcygeal region; I10 Essential (primary) hypertension; L89.304 Pressure ulcer of unspecified buttock, stage 4; K59.00 Constipation, unspecified; E66.01 Morbid (severe) obesity due to excess calories; Z68.37 Body mass index [BMI] 37.0-37.9, adult; E78.5 Hyperlipidemia, unspecified; I25.10 Atherosclerotic heart disease of native coronary artery without angina pectoris; Z90.710 Acquired absence of both cervix and uterus; Z87.891 Personal history of nicotine dependence
CPT/HCPCS: 11042; 82962; G0277; 99183

== ENCOUNTER 2017-12-14 09:54 | Outpatient (CLI) | payer MEDICARE | END 2017-12-14 09:55 | disposition home or self-care (01) | LOC: WOUND 09:54 | PROVIDERS: ATTEND Surgery | DX: E11.622 Type 2 diabetes mellitus with other skin ulcer (principal); L98.411 Non-pressure chronic ulcer of buttock limited to breakdown of skin; L89.304 Pressure ulcer of unspecified buttock, stage 4; K61.1 Rectal abscess; E66.01 Morbid (severe) obesity due to excess calories; E66.9 Obesity, unspecified; M46.28 Osteomyelitis of vertebra, sacral and sacrococcygeal region; M86.38 Chronic multifocal osteomyelitis, other site; I25.10 Atherosclerotic heart disease of native coronary artery without angina pectoris; I10 Essential (primary) hypertension; E78.5 Hyperlipidemia, unspecified; Z68.37 Body mass index [BMI] 37.0-37.9, adult; Z90.710 Acquired absence of both cervix and uterus; Z87.891 Personal history of nicotine dependence | CPT/HCPCS: 82962; G0277; 99183 ==

== ENCOUNTER 2017-12-17 09:53 | Outpatient (CLI) | payer MEDICARE | END 2017-12-17 09:54 | disposition home or self-care (01) | LOC: WOUND 09:53 | PROVIDERS: ATTEND Internal Medicine | DX: E11.622 Type 2 diabetes mellitus with other skin ulcer (principal); L98.411 Non-pressure chronic ulcer of buttock limited to breakdown of skin; L89.304 Pressure ulcer of unspecified buttock, stage 4; I25.10 Atherosclerotic heart disease of native coronary artery without angina pectoris; K61.1 Rectal abscess; I10 Essential (primary) hypertension; E66.01 Morbid (severe) obesity due to excess calories; E11.69 Type 2 diabetes mellitus with other specified complication; M86.38 Chronic multifocal osteomyelitis, other site; M46.28 Osteomyelitis of vertebra, sacral and sacrococcygeal region; Z68.37 Body mass index [BMI] 37.0-37.9, adult; E78.5 Hyperlipidemia, unspecified; Z90.710 Acquired absence of both cervix and uterus; Z87.891 Personal history of nicotine dependence | CPT/HCPCS: 82962; G0277; 99183 ==

== ENCOUNTER 2017-12-20 09:29 | Outpatient (CLI) | payer MEDICARE ==
[2017-12-20] MEDS ORDERED: XYLOCAINE TOPICAL 4% TP ONE ×2 (09:40→09:45)
== END 2017-12-20 09:30 | disposition home or self-care (01) ==
LOC: WOUND 09:29
PROVIDERS: ATTEND Internal Medicine
DX: E11.622 Type 2 diabetes mellitus with other skin ulcer (principal); L89.314 Pressure ulcer of right buttock, stage 4; L98.411 Non-pressure chronic ulcer of buttock limited to breakdown of skin; E66.01 Morbid (severe) obesity due to excess calories; I10 Essential (primary) hypertension; I25.10 Atherosclerotic heart disease of native coronary artery without angina pectoris; E11.69 Type 2 diabetes mellitus with other specified complication; M86.38 Chronic multifocal osteomyelitis, other site; M46.28 Osteomyelitis of vertebra, sacral and sacrococcygeal region; E78.5 Hyperlipidemia, unspecified; Z68.37 Body mass index [BMI] 37.0-37.9, adult; Z90.710 Acquired absence of both cervix and uterus; Z87.891 Personal history of nicotine dependence
CPT/HCPCS: 11042; 82962; G0277; 99183

== ENCOUNTER 2017-12-21 08:56 | Outpatient (CLI) | payer MEDICARE | END 2017-12-21 08:57 | disposition home or self-care (01) | LOC: WOUND 08:56 | PROVIDERS: ATTEND Surgery | DX: E11.622 Type 2 diabetes mellitus with other skin ulcer (principal); L89.324 Pressure ulcer of left buttock, stage 4; L98.411 Non-pressure chronic ulcer of buttock limited to breakdown of skin; I10 Essential (primary) hypertension; E11.69 Type 2 diabetes mellitus with other specified complication; M86.38 Chronic multifocal osteomyelitis, other site; M46.28 Osteomyelitis of vertebra, sacral and sacrococcygeal region; I25.10 Atherosclerotic heart disease of native coronary artery without angina pectoris; E78.5 Hyperlipidemia, unspecified; E66.01 Morbid (severe) obesity due to excess calories; Z68.37 Body mass index [BMI] 37.0-37.9, adult; Z87.891 Personal history of nicotine dependence; Z90.710 Acquired absence of both cervix and uterus | CPT/HCPCS: 82962; G0277; 99183 ==

== ENCOUNTER 2017-12-23 09:56 | Outpatient (CLI) | payer MEDICARE | END 2017-12-23 09:57 | disposition home or self-care (01) | LOC: WOUND 09:56 | PROVIDERS: ATTEND Nurse Practitioner | DX: E11.622 Type 2 diabetes mellitus with other skin ulcer (principal); L98.491 Non-pressure chronic ulcer of skin of other sites limited to breakdown of skin; L89.304 Pressure ulcer of unspecified buttock, stage 4; K61.1 Rectal abscess; E66.01 Morbid (severe) obesity due to excess calories; I10 Essential (primary) hypertension; E11.69 Type 2 diabetes mellitus with other specified complication; M86.38 Chronic multifocal osteomyelitis, other site; M46.28 Osteomyelitis of vertebra, sacral and sacrococcygeal region; I25.10 Atherosclerotic heart disease of native coronary artery without angina pectoris; E78.5 Hyperlipidemia, unspecified; Z68.37 Body mass index [BMI] 37.0-37.9, adult; Z90.710 Acquired absence of both cervix and uterus; Z87.891 Personal history of nicotine dependence | CPT/HCPCS: 82962; G0277; 99183 ==

== ENCOUNTER 2017-12-27 09:32 | Outpatient (CLI) | payer MEDICARE ==
[2017-12-27] MEDS ORDERED: XYLOCAINE TOPICAL 4% TP ONE (09:49)
== END 2017-12-27 09:33 | disposition home or self-care (01) ==
LOC: WOUND 09:32
PROVIDERS: ATTEND Internal Medicine
DX: E11.622 Type 2 diabetes mellitus with other skin ulcer (principal); L98.411 Non-pressure chronic ulcer of buttock limited to breakdown of skin; L89.314 Pressure ulcer of right buttock, stage 4; E11.69 Type 2 diabetes mellitus with other specified complication; M86.38 Chronic multifocal osteomyelitis, other site; M46.28 Osteomyelitis of vertebra, sacral and sacrococcygeal region; I25.10 Atherosclerotic heart disease of native coronary artery without angina pectoris; K61.1 Rectal abscess; I10 Essential (primary) hypertension; E66.01 Morbid (severe) obesity due to excess calories; E78.5 Hyperlipidemia, unspecified; Z68.37 Body mass index [BMI] 37.0-37.9, adult; Z90.710 Acquired absence of both cervix and uterus; Z87.891 Personal history of nicotine dependence
CPT/HCPCS: 11042; 82962; G0277; 99183

== ENCOUNTER 2017-12-30 08:57 | Outpatient (CLI) | payer MEDICARE | END 2017-12-30 08:58 | disposition home or self-care (01) | LOC: WOUND 08:57 | PROVIDERS: ATTEND Nurse Practitioner | DX: E11.622 Type 2 diabetes mellitus with other skin ulcer (principal); L98.411 Non-pressure chronic ulcer of buttock limited to breakdown of skin; L89.304 Pressure ulcer of unspecified buttock, stage 4; E66.01 Morbid (severe) obesity due to excess calories; E11.69 Type 2 diabetes mellitus with other specified complication; M86.38 Chronic multifocal osteomyelitis, other site; M46.28 Osteomyelitis of vertebra, sacral and sacrococcygeal region; I10 Essential (primary) hypertension; I25.10 Atherosclerotic heart disease of native coronary artery without angina pectoris; E78.5 Hyperlipidemia, unspecified; Z68.37 Body mass index [BMI] 37.0-37.9, adult; Z90.710 Acquired absence of both cervix and uterus; Z87.891 Personal history of nicotine dependence | CPT/HCPCS: 82962; G0277; 99183 ==

== ENCOUNTER 2017-12-31 08:51 | Outpatient (CLI) | payer MEDICARE | END 2017-12-31 08:52 | disposition home or self-care (01) | LOC: WOUND 08:51 | PROVIDERS: ATTEND Internal Medicine | DX: E11.622 Type 2 diabetes mellitus with other skin ulcer (principal); L98.411 Non-pressure chronic ulcer of buttock limited to breakdown of skin; L89.304 Pressure ulcer of unspecified buttock, stage 4; K61.1 Rectal abscess; E66.01 Morbid (severe) obesity due to excess calories; E11.69 Type 2 diabetes mellitus with other specified complication; M86.38 Chronic multifocal osteomyelitis, other site; M46.28 Osteomyelitis of vertebra, sacral and sacrococcygeal region; I25.10 Atherosclerotic heart disease of native coronary artery without angina pectoris; E78.5 Hyperlipidemia, unspecified; I10 Essential (primary) hypertension; Z68.37 Body mass index [BMI] 37.0-37.9, adult; Z90.710 Acquired absence of both cervix and uterus; Z87.891 Personal history of nicotine dependence | CPT/HCPCS: 82962; G0277; 99183 ==

== ENCOUNTER 2018-01-03 09:20 | Outpatient (CLI) | payer MEDICARE ==
[2018-01-03] MEDS ORDERED: XYLOCAINE TOPICAL 4% TP ONE ×2 (09:28→09:39)
== END 2018-01-03 09:21 | disposition home or self-care (01) ==
LOC: WOUND 09:20
PROVIDERS: ATTEND Internal Medicine
DX: E11.622 Type 2 diabetes mellitus with other skin ulcer (principal); L98.411 Non-pressure chronic ulcer of buttock limited to breakdown of skin; L89.304 Pressure ulcer of unspecified buttock, stage 4; E11.69 Type 2 diabetes mellitus with other specified complication; M46.28 Osteomyelitis of vertebra, sacral and sacrococcygeal region; M86.38 Chronic multifocal osteomyelitis, other site; I10 Essential (primary) hypertension; E66.01 Morbid (severe) obesity due to excess calories; K59.00 Constipation, unspecified; K61.1 Rectal abscess; I25.10 Atherosclerotic heart disease of native coronary artery without angina pectoris; E78.5 Hyperlipidemia, unspecified; Z90.710 Acquired absence of both cervix and uterus; Z87.891 Personal history of nicotine dependence; Z68.37 Body mass index [BMI] 37.0-37.9, adult
CPT/HCPCS: 11042; 82962; G0277; 99183

== ENCOUNTER 2018-01-04 09:10 | Outpatient (CLI) | payer MEDICARE | END 2018-01-04 09:11 | disposition home or self-care (01) | LOC: WOUND 09:10 | PROVIDERS: ATTEND Surgery | DX: E11.622 Type 2 diabetes mellitus with other skin ulcer (principal); L98.411 Non-pressure chronic ulcer of buttock limited to breakdown of skin; L89.304 Pressure ulcer of unspecified buttock, stage 4; E11.69 Type 2 diabetes mellitus with other specified complication; M46.28 Osteomyelitis of vertebra, sacral and sacrococcygeal region; M86.38 Chronic multifocal osteomyelitis, other site; I10 Essential (primary) hypertension; E66.01 Morbid (severe) obesity due to excess calories; K59.00 Constipation, unspecified; K61.1 Rectal abscess; I25.10 Atherosclerotic heart disease of native coronary artery without angina pectoris; E78.5 Hyperlipidemia, unspecified; Z90.710 Acquired absence of both cervix and uterus; Z87.891 Personal history of nicotine dependence; Z68.37 Body mass index [BMI] 37.0-37.9, adult | CPT/HCPCS: 82962; G0277; 99183 ==

== ENCOUNTER 2018-01-05 10:06 | Outpatient (CLI) | payer MEDICARE | END 2018-01-05 10:07 | disposition home or self-care (01) | LOC: WOUND 10:06 | PROVIDERS: ATTEND Surgery | DX: E11.622 Type 2 diabetes mellitus with other skin ulcer (principal); L98.411 Non-pressure chronic ulcer of buttock limited to breakdown of skin; L89.324 Pressure ulcer of left buttock, stage 4; E11.69 Type 2 diabetes mellitus with other specified complication; M46.28 Osteomyelitis of vertebra, sacral and sacrococcygeal region; M86.38 Chronic multifocal osteomyelitis, other site; I10 Essential (primary) hypertension; E66.01 Morbid (severe) obesity due to excess calories; K59.00 Constipation, unspecified; K61.1 Rectal abscess; I25.10 Atherosclerotic heart disease of native coronary artery without angina pectoris; E78.5 Hyperlipidemia, unspecified; Z90.710 Acquired absence of both cervix and uterus; Z87.891 Personal history of nicotine dependence; Z68.37 Body mass index [BMI] 37.0-37.9, adult | CPT/HCPCS: 82962; G0277; 99183 ==

== ENCOUNTER 2018-01-06 09:55 | Outpatient (CLI) | payer MEDICARE | END 2018-01-06 09:56 | disposition home or self-care (01) | LOC: WOUND 09:55 | PROVIDERS: ATTEND Nurse Practitioner | DX: E11.622 Type 2 diabetes mellitus with other skin ulcer (principal); L98.491 Non-pressure chronic ulcer of skin of other sites limited to breakdown of skin; L89.304 Pressure ulcer of unspecified buttock, stage 4; K61.1 Rectal abscess; E11.69 Type 2 diabetes mellitus with other specified complication; M86.38 Chronic multifocal osteomyelitis, other site; M46.28 Osteomyelitis of vertebra, sacral and sacrococcygeal region; E66.01 Morbid (severe) obesity due to excess calories; I10 Essential (primary) hypertension; I25.10 Atherosclerotic heart disease of native coronary artery without angina pectoris; E78.5 Hyperlipidemia, unspecified; Z90.710 Acquired absence of both cervix and uterus; Z68.37 Body mass index [BMI] 37.0-37.9, adult | CPT/HCPCS: 82962; G0277; 99183 ==

== ENCOUNTER 2018-01-11 10:12 | Outpatient (CLI) | payer MEDICARE | END 2018-01-11 10:13 | disposition home or self-care (01) | LOC: WOUND 10:12 | PROVIDERS: ATTEND Surgery | DX: E11.622 Type 2 diabetes mellitus with other skin ulcer (principal); L98.411 Non-pressure chronic ulcer of buttock limited to breakdown of skin; L89.304 Pressure ulcer of unspecified buttock, stage 4; K61.1 Rectal abscess; E66.01 Morbid (severe) obesity due to excess calories; E11.69 Type 2 diabetes mellitus with other specified complication; M86.38 Chronic multifocal osteomyelitis, other site; M46.28 Osteomyelitis of vertebra, sacral and sacrococcygeal region; I25.10 Atherosclerotic heart disease of native coronary artery without angina pectoris; E78.5 Hyperlipidemia, unspecified; I10 Essential (primary) hypertension; Z68.37 Body mass index [BMI] 37.0-37.9, adult; Z90.710 Acquired absence of both cervix and uterus; Z87.891 Personal history of nicotine dependence | CPT/HCPCS: 82962; G0277; 99183 ==

== ENCOUNTER 2018-01-12 09:58 | Outpatient (CLI) | payer MEDICARE | END 2018-01-12 09:59 | disposition home or self-care (01) | LOC: WOUND 09:58 | PROVIDERS: ATTEND Surgery | DX: E11.622 Type 2 diabetes mellitus with other skin ulcer (principal); L98.411 Non-pressure chronic ulcer of buttock limited to breakdown of skin; L89.304 Pressure ulcer of unspecified buttock, stage 4; K61.1 Rectal abscess; E11.69 Type 2 diabetes mellitus with other specified complication; M86.38 Chronic multifocal osteomyelitis, other site; M46.28 Osteomyelitis of vertebra, sacral and sacrococcygeal region; E66.01 Morbid (severe) obesity due to excess calories; K59.09 Other constipation; I25.10 Atherosclerotic heart disease of native coronary artery without angina pectoris; E78.5 Hyperlipidemia, unspecified; I10 Essential (primary) hypertension; Z68.37 Body mass index [BMI] 37.0-37.9, adult; Z90.710 Acquired absence of both cervix and uterus; Z87.891 Personal history of nicotine dependence | CPT/HCPCS: 82962; G0277; 99183 ==

== ENCOUNTER 2018-01-14 09:40 | Outpatient (CLI) | payer MEDICARE | END 2018-01-14 09:41 | disposition home or self-care (01) | LOC: WOUND 09:40 | PROVIDERS: ATTEND Internal Medicine | DX: E11.622 Type 2 diabetes mellitus with other skin ulcer (principal); L98.411 Non-pressure chronic ulcer of buttock limited to breakdown of skin; L89.304 Pressure ulcer of unspecified buttock, stage 4; K61.1 Rectal abscess; E66.01 Morbid (severe) obesity due to excess calories; E11.69 Type 2 diabetes mellitus with other specified complication; M86.38 Chronic multifocal osteomyelitis, other site; M46.28 Osteomyelitis of vertebra, sacral and sacrococcygeal region; I10 Essential (primary) hypertension; I25.10 Atherosclerotic heart disease of native coronary artery without angina pectoris; E78.5 Hyperlipidemia, unspecified; Z68.37 Body mass index [BMI] 37.0-37.9, adult; Z90.710 Acquired absence of both cervix and uterus; Z87.891 Personal history of nicotine dependence | CPT/HCPCS: 82962; G0277; 99183 ==

== ENCOUNTER 2018-01-17 09:30 | Outpatient (CLI) | payer MEDICARE ==
[2018-01-17] MEDS ORDERED: XYLOCAINE TOPICAL 4% TP ONE (09:54)
== END 2018-01-17 09:31 | disposition home or self-care (01) ==
LOC: WOUND 09:30
PROVIDERS: ATTEND Internal Medicine
DX: E11.622 Type 2 diabetes mellitus with other skin ulcer (principal); L98.411 Non-pressure chronic ulcer of buttock limited to breakdown of skin; L89.304 Pressure ulcer of unspecified buttock, stage 4; E66.01 Morbid (severe) obesity due to excess calories; I25.10 Atherosclerotic heart disease of native coronary artery without angina pectoris; E78.5 Hyperlipidemia, unspecified; I10 Essential (primary) hypertension; Z68.37 Body mass index [BMI] 37.0-37.9, adult; Z90.710 Acquired absence of both cervix and uterus; Z87.891 Personal history of nicotine dependence
CPT/HCPCS: 82962; G0277; G0463; 99183; 99214

== ENCOUNTER 2018-01-18 09:50 | Outpatient (CLI) | payer MEDICARE | END 2018-01-18 09:51 | disposition home or self-care (01) | LOC: WOUND 09:50 | PROVIDERS: ATTEND Surgery | DX: E11.622 Type 2 diabetes mellitus with other skin ulcer (principal); L98.411 Non-pressure chronic ulcer of buttock limited to breakdown of skin; L89.304 Pressure ulcer of unspecified buttock, stage 4; E66.01 Morbid (severe) obesity due to excess calories; K61.1 Rectal abscess; I10 Essential (primary) hypertension; E11.69 Type 2 diabetes mellitus with other specified complication; M86.38 Chronic multifocal osteomyelitis, other site; M46.28 Osteomyelitis of vertebra, sacral and sacrococcygeal region; I25.10 Atherosclerotic heart disease of native coronary artery without angina pectoris; E78.5 Hyperlipidemia, unspecified; Z90.710 Acquired absence of both cervix and uterus; Z68.37 Body mass index [BMI] 37.0-37.9, adult; Z87.891 Personal history of nicotine dependence | CPT/HCPCS: 82962; G0277; 99183 ==

== ENCOUNTER 2018-01-24 09:34 | Outpatient (CLI) | payer MEDICARE ==
[2018-01-24] MEDS ORDERED: XYLOCAINE TOPICAL 4% TP ONE (09:45)
== END 2018-01-24 09:35 | disposition home or self-care (01) ==
LOC: WOUND 09:34
PROVIDERS: ATTEND Internal Medicine
DX: E11.622 Type 2 diabetes mellitus with other skin ulcer (principal); L98.411 Non-pressure chronic ulcer of buttock limited to breakdown of skin; L89.314 Pressure ulcer of right buttock, stage 4; E66.01 Morbid (severe) obesity due to excess calories; K61.1 Rectal abscess; I10 Essential (primary) hypertension; K59.00 Constipation, unspecified; E11.69 Type 2 diabetes mellitus with other specified complication; M86.38 Chronic multifocal osteomyelitis, other site; M46.28 Osteomyelitis of vertebra, sacral and sacrococcygeal region; I25.10 Atherosclerotic heart disease of native coronary artery without angina pectoris; E78.5 Hyperlipidemia, unspecified; Z90.710 Acquired absence of both cervix and uterus; Z68.37 Body mass index [BMI] 37.0-37.9, adult; Z87.891 Personal history of nicotine dependence

== ENCOUNTER 2018-01-26 10:24 | Outpatient (CLI) | payer MEDICARE ==
--- NOTE | 2018-01-27 15:16 | Magnetic Resonance Report ---
MRI PELVIS WITHOUT CONTRAST INDICATION: Low back pain, osteomyelitis. COMPARISON: 04/17/2017 pelvic MRI and 04/09/2016 CT. FINDINGS: Noncontrast multiplanar and multisequence MRI of the pelvis again demonstrates absent coccyx and likely the distal sacrum with possible visualization up to about S4. Grossly normal sacral signal. Sacral decubitus changes in overlying soft tissues again noted, more so on the right with mild hyperintense T2 signal also again extending to the sacral tip and some pre-sacral up to S2 as on axial series 5, images 16-31 with an index maximum measurement of approximately 1.7 cm AP x 4.7 cm transverse, axial image 24. No significant pelvic free fluid or adenopathy. Imaged urinary bladder and the rectum appear unremarkable. Uterus again surgically absent. Large left lower quadrant hernia containing nonobstructive small and large bowel with mesenteric fat and vessels incompletely imaged extending subcutaneously through a 3.8 cm transverse neck as on axial series 7, images 26-42. A 6.7 x 2.7 cm left gluteal suresh lipoma also again seen. CONCLUSION: 1. Coccyx and distal sacrum again noted absent with no definite MRI evidence of osteomyelitis. Sacral decubitus ulcer with mild inflammatory soft tissue changes though again seen in close proximity to the sacral tip as also some presacral, as described above. 2. Other findings as incompletely imaged large left lower quadrant parastomal hernia containing nonobstructive bowel and mesenteric fat. Thank you for the opportunity to participate in this patient's care.
== END 2018-01-26 10:25 | disposition home or self-care (01) ==
LOC: MRI 10:24
PROVIDERS: ATTEND Internal Medicine
DX: E11.622 Type 2 diabetes mellitus with other skin ulcer (principal); L89.314 Pressure ulcer of right buttock, stage 4; D17.79 Benign lipomatous neoplasm of other sites; K43.5 Parastomal hernia without obstruction or gangrene; I10 Essential (primary) hypertension; E78.00 Pure hypercholesterolemia, unspecified; D64.9 Anemia, unspecified; Z87.891 Personal history of nicotine dependence; Z90.710 Acquired absence of both cervix and uterus; Z79.899 Other long term (current) drug therapy
CPT/HCPCS: 72195

== ENCOUNTER 2018-01-31 10:07 | Outpatient (CLI) | payer MEDICARE ==
[2018-01-31] MEDS ORDERED: XYLOCAINE TOPICAL 4% TP ONE (11:37)
== END 2018-01-31 10:08 | disposition home or self-care (01) ==
LOC: WOUND 10:07
PROVIDERS: ATTEND Internal Medicine
DX: E11.622 Type 2 diabetes mellitus with other skin ulcer (principal); L98.411 Non-pressure chronic ulcer of buttock limited to breakdown of skin; L89.304 Pressure ulcer of unspecified buttock, stage 4; K61.1 Rectal abscess; I10 Essential (primary) hypertension; E66.01 Morbid (severe) obesity due to excess calories; E11.69 Type 2 diabetes mellitus with other specified complication; M86.38 Chronic multifocal osteomyelitis, other site; M46.28 Osteomyelitis of vertebra, sacral and sacrococcygeal region; I25.10 Atherosclerotic heart disease of native coronary artery without angina pectoris; E78.5 Hyperlipidemia, unspecified; Z90.710 Acquired absence of both cervix and uterus; Z68.37 Body mass index [BMI] 37.0-37.9, adult; Z87.891 Personal history of nicotine dependence

== ENCOUNTER 2018-02-07 09:33 | Outpatient (CLI) | payer MEDICARE ==
[2018-02-07] MEDS ORDERED: XYLOCAINE TOPICAL 4% TP ONE (09:44)
== END 2018-02-07 09:34 | disposition home or self-care (01) ==
LOC: WOUND 09:33
PROVIDERS: ATTEND Internal Medicine
DX: E11.622 Type 2 diabetes mellitus with other skin ulcer (principal); L98.491 Non-pressure chronic ulcer of skin of other sites limited to breakdown of skin; L89.304 Pressure ulcer of unspecified buttock, stage 4; K61.1 Rectal abscess; E66.01 Morbid (severe) obesity due to excess calories; I25.10 Atherosclerotic heart disease of native coronary artery without angina pectoris; E78.5 Hyperlipidemia, unspecified; E11.69 Type 2 diabetes mellitus with other specified complication; M86.38 Chronic multifocal osteomyelitis, other site; M46.28 Osteomyelitis of vertebra, sacral and sacrococcygeal region; I10 Essential (primary) hypertension; Z68.37 Body mass index [BMI] 37.0-37.9, adult; Z90.710 Acquired absence of both cervix and uterus; Z87.891 Personal history of nicotine dependence
CPT/HCPCS: 99214; G0463

== ENCOUNTER 2018-02-21 09:31 | Outpatient (CLI) | payer MEDICARE ==
[2018-02-21] MEDS ORDERED: XYLOCAINE TOPICAL 2% 5ML ONE (09:42)
[2018-02-21] MEDS ORDERED: XYLOCAINE TOPICAL 2% 5ML TP ONE (09:49)
== END 2018-02-21 09:32 | disposition home or self-care (01) ==
LOC: WOUND 09:31
PROVIDERS: ATTEND Internal Medicine
DX: E11.622 Type 2 diabetes mellitus with other skin ulcer (principal); L98.411 Non-pressure chronic ulcer of buttock limited to breakdown of skin; L89.304 Pressure ulcer of unspecified buttock, stage 4; K61.1 Rectal abscess; E66.01 Morbid (severe) obesity due to excess calories; I25.10 Atherosclerotic heart disease of native coronary artery without angina pectoris; E11.69 Type 2 diabetes mellitus with other specified complication; M46.28 Osteomyelitis of vertebra, sacral and sacrococcygeal region; I10 Essential (primary) hypertension; E78.5 Hyperlipidemia, unspecified; Z90.710 Acquired absence of both cervix and uterus; Z68.37 Body mass index [BMI] 37.0-37.9, adult; Z87.891 Personal history of nicotine dependence

== ENCOUNTER 2018-02-23 09:48 | Outpatient (CLI) | payer MEDICARE ==
--- NOTE | 2018-02-23 17:06 | Cat Scan Report ---
FINAL REPORT EXAM: CT ABDOMEN PELVIS WO CON HISTORY: HYPERCALCEMIA,HYPERPARATHYROIDISM TECHNIQUE: CT of the abdomen and pelvis without IV contrast. Coronal and sagittal reconstructed imaging provided. PRIORS: CT abdomen pelvis April 09, 2016. FINDINGS: ABDOMEN: Kidneys: 5.3 mm stone inferior right kidney. 4.1 mm stone inferior left kidney. No hydronephrosis. No ureteral stones. Previously noted cysts in the mid left kidney is not clearly identified on this noncontrast CT scan. Liver, gallbladder, spleen, pancreas, and adrenals are unremarkable. Small hiatal hernia. Stomach is otherwise unremarkable. IVC is unremarkable. Mild aortic atherosclerotic disease. No periaortic or retroperitoneal mass or adenopathy. No obvious mass. Left lower quadrant diverting colostomy or colostomy noted. Mild stool in the sigmoid colon and rectum. Moderate stool in the transverse colon and ascending colon. No wall thickening or inflammatory changes. Periostomy hernia containing fat and loops of small bowel identified. No strangulation. No obstructive pattern. Intra-abdominal small bowel loops are otherwise unremarkable without obstructive pattern, wall thickening, or air-fluid levels. Diastasis recti superimposed fat containing umbilical hernia. No strangulation. No free air or free fluid. No mesentery lesions or adenopathy. No free fluid. Subcutaneous lesion in the midline upper abdomen/lower thorax on series 3:28 measures 11.8 x 16.3 mm and is nonspecific. PELVIS: Bladder is unremarkable. Uterus is not clearly identified and may be surgically removed, small, or atrophic. At the distal sacrum extending down into the posterior soft tissues there is a prominent soft tissue density with areas of subcutaneous gas. Overall size of the lesion measures 7.8 x 10.7 x 12.4 cm and probably best visualized on series 3: 319-336 and series 601:125. Lesion extends to the anterior perineum and possibly around the vagina/labia some mild stranding of the adjacent subcutaneous fat identified. There is cortical irregularity of the sacrum and osteolysis of the distal sacrum and loss of the coccyx. Hypertrophic osseous changes identified. Mottled appearance of the bone. Posterior on series 3:318 there may be dehiscence into the posterior soft tissues. Series 2:159 there is a gas and fluid in the soft tissues which is connected to the dehiscence which may represent a subcutaneous abscess measuring 43.4 x 4.1 mm. Soft tissue stranding also extends into the presacral region at the distal sacrum. No direct connection with the rectum identified. Linear density extending toward the anus may represent a fistula. Difficult to determine if there is a fistulous connection to the cutaneous surface. A distinct intrapelvic abscess is not present. Evaluation is limited by the lack of IV contrast. Given the osteolysis of the distal coccyx there is concern that there may be some inflammatory spread around the spinal canal at the distal sacrum. At the level of the L5-S1 level there is no obvious intraspinal stranding but the evaluation is limited by the lack of intravenous contrast. Degenerative changes are present within the spine. No obvious suspicious lesions but metastatic disease not entirely excluded. Bone scan may be helpful if clinically indicated IMPRESSION: Nonobstructing bilateral renal stones. Left lower quadrant colostomy/diverting colostomy with Periostomy hernia containing fat and small bowel loops. No strangulation. Soft tissue density with stranding and small pockets of gas at the floor of the pelvis extending from the posterior perineum anteriorly to the region around the labia. Findings are is concerning for decubitus ulcer with abscess around the buttocks and perianal region. Osteolysis of the coccyx, cortical irregularity and hyperostosis at the sacrum and stranding of the soft tissues in the pre and postsacral region are suggestive of soft tissue infection and osteomyelitis. Possibly chronic. Extension into the spinal canal at the level of the distal sacrum is not excluded. Differential diagnosis would include chronic posttraumatic, postsurgical, or chronic postinflammatory changes. Evaluation is limited by the lack of IV contrast. Overall worse compared to prior. Nonspecific subcutaneous lesion in the upper abdomen/lower thorax ventral soft tissues. Larger compared to prior. February 23, 2018 at 1346 PDT: I discussed the findings over phone with ROSS Rivera.
--- NOTE | 2018-02-23 17:20 | Cat Scan Report ---
FINAL REPORT EXAM: CT NECK WO CON HISTORY: HYPERCALCEMIA,HYPERPARATHYROIDISM TECHNIQUE: CT examination of the neck without IV contrast. The examination is limited by lack of IV contrast and axial sections only. PRIORS: None. FINDINGS: Examination limited by lack of IV contrast. Visualized brain: No focal abnormality Visualized lung apices: No focal abnormality Paranasal sinuses: Clear Torus tubaris: No focal abnormality Fossa of Rosenmuller: No focal abnormality Vallecula: No focal abnormality Piriform sinus: No focal abnormality Epiglottis: No focal abnormality Vocal cord region: No focal abnormality Parapharyngeal fat planes: No focal abnormality Parotid and submandibular glands: No focal abnormality Thyroid: Normal. Nonspecific soft tissue density nodule is noted posterior to the left thyroid lobe measuring 10 x 13 mm. This may be a small lymph node. The differential includes a prominent parathyroid gland. Vessels: Limited evaluation without IV contrast. Lymph nodes: No gross enlargement Abnormal fluid collection to suggest abscess: None, although evaluation limited without IV contrast Nonspecific 6 x 21 mm nodular calcification in the right frontoparietal scalp region. This may be related to patient's history of hypercalcemia. IMPRESSION: 10 x 13 mm nodule posterior to the left thyroid lobe may be a small lymph node. The differential includes a prominent parathyroid gland or parathyroid adenoma. Followup parathyroid nuclear medicine exam may be useful to further characterize, in the appropriate clinical setting 6 x 21 mm nodular calcification in the right frontoparietal scalp region may be related to history of hypercalcemia
== END 2018-02-23 09:49 | disposition home or self-care (01) ==
LOC: CT 09:48
PROVIDERS: ATTEND Internal Medicine
DX: E21.3 Hyperparathyroidism, unspecified (principal); N20.0 Calculus of kidney; G93.89 Other specified disorders of brain; E04.1 Nontoxic single thyroid nodule; K44.9 Diaphragmatic hernia without obstruction or gangrene; I70.0 Atherosclerosis of aorta; M89.58 Osteolysis, other site; Z93.3 Colostomy status
CPT/HCPCS: 70490; 74176

== ENCOUNTER 2018-02-28 09:33 | Outpatient (CLI) | payer MEDICARE ==
[2018-02-28] MEDS ORDERED: XYLOCAINE TOPICAL 4% TP ONE (10:10)
== END 2018-02-28 09:34 | disposition home or self-care (01) ==
LOC: WOUND 09:33
PROVIDERS: ATTEND Internal Medicine
DX: E11.622 Type 2 diabetes mellitus with other skin ulcer (principal); L98.411 Non-pressure chronic ulcer of buttock limited to breakdown of skin; L89.304 Pressure ulcer of unspecified buttock, stage 4; K61.1 Rectal abscess; E66.01 Morbid (severe) obesity due to excess calories; E11.69 Type 2 diabetes mellitus with other specified complication; M46.28 Osteomyelitis of vertebra, sacral and sacrococcygeal region; I10 Essential (primary) hypertension; I25.10 Atherosclerotic heart disease of native coronary artery without angina pectoris; E78.5 Hyperlipidemia, unspecified; Z90.710 Acquired absence of both cervix and uterus; Z68.37 Body mass index [BMI] 37.0-37.9, adult; Z87.891 Personal history of nicotine dependence

== ENCOUNTER 2018-03-14 09:32 | Outpatient (CLI) | payer MEDICARE ==
[2018-03-14] MEDS ORDERED: XYLOCAINE TOPICAL 4% TP ONE (10:07)
[2018-03-14] MEDS ORDERED: SILVER NITRATE TP ONE ×2 (10:44→15:20)
== END 2018-03-14 09:33 | disposition home or self-care (01) ==
LOC: WOUND 09:32
PROVIDERS: ATTEND Internal Medicine
DX: E11.622 Type 2 diabetes mellitus with other skin ulcer (principal); L98.411 Non-pressure chronic ulcer of buttock limited to breakdown of skin; L89.314 Pressure ulcer of right buttock, stage 4; K61.1 Rectal abscess; E66.01 Morbid (severe) obesity due to excess calories; E11.69 Type 2 diabetes mellitus with other specified complication; M46.28 Osteomyelitis of vertebra, sacral and sacrococcygeal region; I10 Essential (primary) hypertension; I25.10 Atherosclerotic heart disease of native coronary artery without angina pectoris; E78.5 Hyperlipidemia, unspecified; Z90.710 Acquired absence of both cervix and uterus; Z68.37 Body mass index [BMI] 37.0-37.9, adult; Z87.891 Personal history of nicotine dependence

== ENCOUNTER 2018-03-28 09:30 | Outpatient (CLI) | payer MEDICARE ==
[2018-03-28] MEDS ORDERED: XYLOCAINE TOPICAL 4% TP ONE (10:06)
== END 2018-03-28 09:31 | disposition home or self-care (01) ==
LOC: WOUND 09:30
PROVIDERS: ATTEND Internal Medicine
DX: E11.622 Type 2 diabetes mellitus with other skin ulcer (principal); L89.314 Pressure ulcer of right buttock, stage 4; L98.411 Non-pressure chronic ulcer of buttock limited to breakdown of skin; E66.01 Morbid (severe) obesity due to excess calories; K59.00 Constipation, unspecified; I25.10 Atherosclerotic heart disease of native coronary artery without angina pectoris; E78.5 Hyperlipidemia, unspecified; E11.69 Type 2 diabetes mellitus with other specified complication; M46.28 Osteomyelitis of vertebra, sacral and sacrococcygeal region; I10 Essential (primary) hypertension; Z68.37 Body mass index [BMI] 37.0-37.9, adult; Z90.710 Acquired absence of both cervix and uterus; Z87.891 Personal history of nicotine dependence

== ENCOUNTER 2018-04-11 09:27 | Outpatient (CLI) | payer MEDICARE ==
[2018-04-11] MEDS ORDERED: XYLOCAINE TOPICAL 4% TP ONE ×2 (09:57→11:33)
== END 2018-04-11 09:28 | disposition home or self-care (01) ==
LOC: WOUND 09:27
PROVIDERS: ATTEND Surgery
DX: E11.622 Type 2 diabetes mellitus with other skin ulcer (principal); L89.314 Pressure ulcer of right buttock, stage 4; L98.411 Non-pressure chronic ulcer of buttock limited to breakdown of skin; E66.01 Morbid (severe) obesity due to excess calories; K59.00 Constipation, unspecified; I25.10 Atherosclerotic heart disease of native coronary artery without angina pectoris; E78.5 Hyperlipidemia, unspecified; E11.69 Type 2 diabetes mellitus with other specified complication; M46.28 Osteomyelitis of vertebra, sacral and sacrococcygeal region; I10 Essential (primary) hypertension; Z68.37 Body mass index [BMI] 37.0-37.9, adult; Z90.710 Acquired absence of both cervix and uterus; Z87.891 Personal history of nicotine dependence

== ENCOUNTER 2018-05-02 09:53 | Outpatient (CLI) | payer MEDICARE ==
[2018-05-02] MEDS ORDERED: XYLOCAINE TOPICAL 4% TP ONE ×2 (10:04→11:11)
== END 2018-05-02 09:54 | disposition home or self-care (01) ==
LOC: WOUND 09:53
PROVIDERS: ATTEND Surgery
DX: L02.31 Cutaneous abscess of buttock (principal); E11.69 Type 2 diabetes mellitus with other specified complication; M46.28 Osteomyelitis of vertebra, sacral and sacrococcygeal region; E78.5 Hyperlipidemia, unspecified; I25.10 Atherosclerotic heart disease of native coronary artery without angina pectoris; I10 Essential (primary) hypertension; Z90.710 Acquired absence of both cervix and uterus; Z87.891 Personal history of nicotine dependence
CPT/HCPCS: 99214; G0463

== ENCOUNTER 2018-05-16 09:48 | Outpatient (CLI) | payer MEDICARE | END 2018-05-16 09:49 | disposition home or self-care (01) | LOC: WOUND 09:48 | PROVIDERS: ATTEND Surgery | DX: E11.622 Type 2 diabetes mellitus with other skin ulcer (principal); L98.411 Non-pressure chronic ulcer of buttock limited to breakdown of skin; L89.314 Pressure ulcer of right buttock, stage 4; L02.31 Cutaneous abscess of buttock; E11.69 Type 2 diabetes mellitus with other specified complication; M46.28 Osteomyelitis of vertebra, sacral and sacrococcygeal region; I10 Essential (primary) hypertension; E66.01 Morbid (severe) obesity due to excess calories; I25.10 Atherosclerotic heart disease of native coronary artery without angina pectoris; E78.5 Hyperlipidemia, unspecified; Z68.37 Body mass index [BMI] 37.0-37.9, adult; Z90.710 Acquired absence of both cervix and uterus; Z87.891 Personal history of nicotine dependence ==

== ENCOUNTER 2018-06-06 09:53 | Outpatient (CLI) | payer MEDICARE ==
[2018-06-06] MEDS ORDERED: XYLOCAINE TOPICAL 4% TP ONE ×2 (10:09→10:15)
== END 2018-06-06 09:54 | disposition home or self-care (01) ==
LOC: WOUND 09:53
PROVIDERS: ATTEND Surgery
DX: E11.622 Type 2 diabetes mellitus with other skin ulcer (principal); L98.411 Non-pressure chronic ulcer of buttock limited to breakdown of skin; L89.314 Pressure ulcer of right buttock, stage 4; L02.31 Cutaneous abscess of buttock; E11.69 Type 2 diabetes mellitus with other specified complication; M46.28 Osteomyelitis of vertebra, sacral and sacrococcygeal region; I10 Essential (primary) hypertension; E66.01 Morbid (severe) obesity due to excess calories; I25.10 Atherosclerotic heart disease of native coronary artery without angina pectoris; E78.5 Hyperlipidemia, unspecified; Z68.37 Body mass index [BMI] 37.0-37.9, adult; Z90.710 Acquired absence of both cervix and uterus; Z87.891 Personal history of nicotine dependence
CPT/HCPCS: 99214; G0463

== ENCOUNTER 2018-06-20 09:42 | Outpatient (CLI) | payer MEDICARE ==
[2018-06-20] MEDS ORDERED: XYLOCAINE TOPICAL 2% 5ML ONE (09:55)
[2018-06-20] MEDS ORDERED: XYLOCAINE TOPICAL 2% 5ML TP ONE (10:02)
== END 2018-06-20 09:43 | disposition home or self-care (01) ==
LOC: WOUND 09:42
PROVIDERS: ATTEND Surgery
DX: E11.622 Type 2 diabetes mellitus with other skin ulcer (principal); L98.411 Non-pressure chronic ulcer of buttock limited to breakdown of skin; L89.314 Pressure ulcer of right buttock, stage 4; L02.31 Cutaneous abscess of buttock; E11.69 Type 2 diabetes mellitus with other specified complication; M46.28 Osteomyelitis of vertebra, sacral and sacrococcygeal region; I10 Essential (primary) hypertension; E66.01 Morbid (severe) obesity due to excess calories; I25.10 Atherosclerotic heart disease of native coronary artery without angina pectoris; E78.5 Hyperlipidemia, unspecified; Z68.37 Body mass index [BMI] 37.0-37.9, adult; Z90.710 Acquired absence of both cervix and uterus; Z87.891 Personal history of nicotine dependence
CPT/HCPCS: 99214; G0463

== ENCOUNTER 2018-07-04 09:39 | Outpatient (CLI) | payer MEDICARE ==
[2018-07-04] MEDS ORDERED: XYLOCAINE TOPICAL 4% TP ONE ×2 (09:45→10:06)
== END 2018-07-04 09:40 | disposition home or self-care (01) ==
LOC: WOUND 09:39
PROVIDERS: ATTEND Surgery
DX: E11.622 Type 2 diabetes mellitus with other skin ulcer (principal); L98.411 Non-pressure chronic ulcer of buttock limited to breakdown of skin; L89.314 Pressure ulcer of right buttock, stage 4; L02.31 Cutaneous abscess of buttock; E11.69 Type 2 diabetes mellitus with other specified complication; M46.28 Osteomyelitis of vertebra, sacral and sacrococcygeal region; I10 Essential (primary) hypertension; E66.01 Morbid (severe) obesity due to excess calories; I25.10 Atherosclerotic heart disease of native coronary artery without angina pectoris; E78.5 Hyperlipidemia, unspecified; Z68.37 Body mass index [BMI] 37.0-37.9, adult; Z90.710 Acquired absence of both cervix and uterus; Z87.891 Personal history of nicotine dependence
CPT/HCPCS: 99214; G0463

== ENCOUNTER 2018-07-25 09:36 | Outpatient (CLI) | payer MEDICARE ==
[2018-07-25] MEDS ORDERED: XYLOCAINE TOPICAL 4% TP ONE ×2 (09:57→10:05)
== END 2018-07-25 09:37 | disposition home or self-care (01) ==
LOC: WOUND 09:36
PROVIDERS: ATTEND Surgery
DX: E11.622 Type 2 diabetes mellitus with other skin ulcer (principal); L98.411 Non-pressure chronic ulcer of buttock limited to breakdown of skin; L89.314 Pressure ulcer of right buttock, stage 4; L02.31 Cutaneous abscess of buttock; E11.69 Type 2 diabetes mellitus with other specified complication; M46.28 Osteomyelitis of vertebra, sacral and sacrococcygeal region; I10 Essential (primary) hypertension; E66.01 Morbid (severe) obesity due to excess calories; I25.10 Atherosclerotic heart disease of native coronary artery without angina pectoris; E78.5 Hyperlipidemia, unspecified; Z68.37 Body mass index [BMI] 37.0-37.9, adult; Z90.710 Acquired absence of both cervix and uterus; Z87.891 Personal history of nicotine dependence

== ENCOUNTER 2018-08-15 09:49 | Outpatient (CLI) | payer MEDICARE ==
[2018-08-15] MEDS ORDERED: XYLOCAINE TOPICAL 4% TP ONE ×2 (10:14→15:55)
== END 2018-08-15 09:50 | disposition home or self-care (01) ==
LOC: WOUND 09:49
PROVIDERS: ATTEND Surgery
DX: E11.622 Type 2 diabetes mellitus with other skin ulcer (principal); L97.411 Non-pressure chronic ulcer of right heel and midfoot limited to breakdown of skin; L89.314 Pressure ulcer of right buttock, stage 4; L02.31 Cutaneous abscess of buttock; E11.69 Type 2 diabetes mellitus with other specified complication; M46.28 Osteomyelitis of vertebra, sacral and sacrococcygeal region; I10 Essential (primary) hypertension; E66.01 Morbid (severe) obesity due to excess calories; I25.10 Atherosclerotic heart disease of native coronary artery without angina pectoris; E78.5 Hyperlipidemia, unspecified; Z68.37 Body mass index [BMI] 37.0-37.9, adult; Z90.710 Acquired absence of both cervix and uterus; Z87.891 Personal history of nicotine dependence
CPT/HCPCS: 99213; G0463

== ENCOUNTER 2018-08-24 09:30 | Outpatient (CLI) | payer MEDICARE ==
--- NOTE | 2018-08-24 11:29 | Mammography Report ---
BILATERAL DIGITAL SCREENING MAMMOGRAM with CAD: 08/24/18 09:30:00 CLINICAL: Routine screening. COMPARISON:03/17/17 FINDINGS: The breasts are almost entirely fatty.Stable low-density bilateral circumscribed nodules. A left central biopsy clip with stable calcifications in the clip. No new mass, architectural distortion or suspicious calcifications. IMPRESSION: No mammographic evidence of malignancy. BI-RADS CATEGORY: 2 -- Benign RECOMMENDATION: Routine mammographic screening in one year. COMMENT: Patient follow-up letters are generated by our [employer] application.
== END 2018-08-24 09:31 | disposition home or self-care (01) ==
LOC: MAMMO 09:30
PROVIDERS: ATTEND Internal Medicine
DX: Z12.31 Encounter for screening mammogram for malignant neoplasm of breast (principal); I10 Essential (primary) hypertension; E11.9 Type 2 diabetes mellitus without complications; E78.5 Hyperlipidemia, unspecified; E78.00 Pure hypercholesterolemia, unspecified; Z90.710 Acquired absence of both cervix and uterus; M19.90 Unspecified osteoarthritis, unspecified site
CPT/HCPCS: 77067

== ENCOUNTER 2018-09-12 08:04 | Outpatient (CLI) | payer MEDICARE ==
[2018-09-12] MEDS ORDERED: LEXISCAN IV ONE (09:50)
[2018-09-12 14:52] VITALS: BP 141/82
--- NOTE | 2018-09-13 02:44 | Treadmill Report ---
NUCLEAR PERFUSION STUDY ORDERING PHYSICIAN: Billy Griggs MD READING PHYSICIAN: Boston Baez MD IMAGING PROTOCOL: Single isotope used. The patient received 10 mCi of Technetium 99m Tetrofosmin for resting image and 28 mCi of Technetium 99m Tetrofosmin for stress imaging. The imaging for the whole procedure was completed 30-90 minutes following the initial injection of Technetium 99m Tetrofosmin. The SPECT imaging in the 180 degree arc was performed in the right anterior oblique projection. Computerized reconstruction of the images was performed for analysis. IMAGING RESULTS: Normal cavity size from stress to rest in the anterior, inferior, septal, lateral, but there is [id number]-[id number] area of decreased myocardial uptake in the apical region seen on stress compared to rest. Gated SPECT is 70%. The patient tried to initially walk on Blayne protocol, but was short of breath after 2 minutes, achieved heart rate 152%, was changed to a Lexiscan and had no EKG changes suggestive of ischemia. SUMMARY: 1. Negative Lexiscan EKG. 2. Poor exercise capacity. 3. The patient has a small mild apical ischemia with normal perfusion in the septal, lateral, anterior and inferior region. Gated SPECT, EF 70%. JOB# [id number] RISHABH/CHANDAN
== END 2018-09-12 08:05 | disposition home or self-care (01) ==
LOC: CARD 08:04
PROVIDERS: ATTEND Internal Medicine
DX: I99.8 Other disorder of circulatory system (principal)
CPT/HCPCS: 78452; 93017; A9502; J2785

== ENCOUNTER 2019-03-29 08:33 | Outpatient (CLI) | payer MEDICARE ==
[2019-03-29 10:14] LABS: Albumin 3.8 g/dL (3.9-5); Calcium 9.8 mg/dL (8.4-10.2); Chol/HDL Ratio 3.44 %
== END 2019-03-29 08:34 | disposition home or self-care (01) ==
LOC: LAB 08:33
PROVIDERS: ATTEND Internal Medicine
DX: Z13.220 Encounter for screening for lipoid disorders (principal); E11.9 Type 2 diabetes mellitus without complications; I25.83 Coronary atherosclerosis due to lipid rich plaque; E83.52 Hypercalcemia; R94.31 Abnormal electrocardiogram [ECG] [EKG]; I10 Essential (primary) hypertension; E78.5 Hyperlipidemia, unspecified; E78.00 Pure hypercholesterolemia, unspecified; Z90.710 Acquired absence of both cervix and uterus
CPT/HCPCS: 36415; 80053; 80061; 83036

== ENCOUNTER 2019-04-12 10:53 | Outpatient (CLI) | payer MEDICARE | END 2019-04-12 10:54 | disposition home or self-care (01) | LOC: LAB 10:53 | PROVIDERS: ATTEND Internal Medicine | DX: E87.5 Hyperkalemia (principal); I10 Essential (primary) hypertension; E78.00 Pure hypercholesterolemia, unspecified; E11.9 Type 2 diabetes mellitus without complications; Z90.710 Acquired absence of both cervix and uterus; E78.5 Hyperlipidemia, unspecified | CPT/HCPCS: 36415; 84132 ==

== ENCOUNTER 2019-08-08 09:05 | Outpatient (CLI) | payer MEDICARE ==
[2019-08-08 11:38] LABS: Chol/HDL Ratio 3.46 %
== END 2019-08-08 09:06 | disposition home or self-care (01) ==
LOC: LAB 09:05
PROVIDERS: ATTEND Internal Medicine
DX: E55.9 Vitamin D deficiency, unspecified (principal); E11.9 Type 2 diabetes mellitus without complications; E78.5 Hyperlipidemia, unspecified; E87.5 Hyperkalemia
CPT/HCPCS: 36415; 80061; 82306; 83036; 84132

== ENCOUNTER 2019-09-01 09:30 | Outpatient (CLI) | payer MEDICARE ==
--- NOTE | 2019-09-04 10:37 | Mammography Report ---
DIGITAL SCREENING MAMMOGRAM WITH CAD, 09/01/2019 INDICATION: Routine screening mammography. TECHNIQUE: Digital bilateral 2D mammography was obtained in the craniocaudal and mediolateral obliq ue projections. This examination was interpreted with the benefit of Computer-Aided Detection analysi s. COMPARISON: 08/24/2018 FINDINGS: Breast Density: The breasts are almost entirely fatty. There is no evidence of dominant mass, suspicious calcifications or architectural distortion in eithe r breast. A left central biopsy clip with a few stable benign-appearing calcifications near the clip. IMPRESSION: No mammographic evidence of malignancy. Follow up recommendation: Routine yearly BI-RADS Category 2: Benign. A "normal" or negative report should not discourage follow up or biopsy of a clinically significant f inding. A written summary of these findings will be mailed to the patient. The patient will be entered into a mammography reporting system which will generate a reminder letter for the patient's next appointmen t at the appropriate interval. The [employer] recommends yearly mammograms starting at age 40 and continuing as l yon as a woman is in good health. Breast MRI is recommended for women with an approximate 20-25% or greater lifetime risk of breast cancer, including women with a strong family history of breast or ova nicky cancer or who have been treated for Hodgkin's disease. Signer Name: Jaleel De La Rosa MD Signed: 09/04/2019 10:33 AM Workstation Name: [id number]
== END 2019-09-01 09:31 | disposition home or self-care (01) ==
LOC: MAMMO 09:30
PROVIDERS: ATTEND Internal Medicine
DX: Z12.31 Encounter for screening mammogram for malignant neoplasm of breast (principal)
CPT/HCPCS: 77067

== ENCOUNTER 2019-12-07 08:54 | Outpatient (CLI) | payer MEDICARE ==
[2019-12-07 13:54] LABS: Chol/HDL Ratio 3.89 %
[2019-12-11 19:12] LABS: Vitamin D, 25-OH, D2 38 ng/mL
== END 2019-12-07 08:55 | disposition home or self-care (01) ==
LOC: LAB 08:54
PROVIDERS: ATTEND Internal Medicine
DX: E78.5 Hyperlipidemia, unspecified (principal); E03.9 Hypothyroidism, unspecified; E11.9 Type 2 diabetes mellitus without complications; E55.9 Vitamin D deficiency, unspecified
CPT/HCPCS: 36415; 80061; 82306; 83036; 84443

== ENCOUNTER 2020-10-15 08:36 | Outpatient (CLI) | payer MEDICARE ==
--- NOTE | 2020-10-15 17:22 | Mammography Report ---
DIGITAL SCREENING MAMMOGRAM WITH CAD, 10/15/2020 INDICATION: Routine screening mammography. TECHNIQUE: Digital bilateral 2D mammography was obtained in the craniocaudal and mediolateral obliq ue projections. This examination was interpreted with the benefit of Computer-Aided Detection analysi s. COMPARISON: 09/01/2019, 08/24/2018, 03/17/2017 FINDINGS: Breast Density: The breasts are almost entirely fatty. There is no evidence of dominant mass, suspicious calcifications or architectural distortion in the l eft breast. There are developing clustered calcifications in the right breast at the 2:00 position mi ddle depth which will require additional evaluation with magnification views. IMPRESSION: Follow up recommendation: Special View: Mag BI-RADS Category 0: Incomplete. Needs additional imaging evaluation and/or prior mammograms for alan rison. A "normal" or negative report should not discourage follow up or biopsy of a clinically significant f inding. A written summary of these findings will be mailed to the patient. The patient will be entered into a mammography reporting system which will generate a reminder letter for the patient's next appointmen t at the appropriate interval. The [employer] recommends yearly mammograms starting at age 40 and continuing as l yon as a woman is in good health. Breast MRI is recommended for women with an approximate 20-25% or greater lifetime risk of breast cancer, including women with a strong family history of breast or ova nicky cancer or who have been treated for Hodgkin's disease. Signer Name: Pau Harrison MD Signed: 10/15/2020 5:22 PM Workstation Name: [email or web address] [id number]
== END 2020-10-15 08:37 | disposition home or self-care (01) ==
LOC: MAMMO 08:36
PROVIDERS: ATTEND Internal Medicine
DX: Z12.31 Encounter for screening mammogram for malignant neoplasm of breast (principal)
CPT/HCPCS: 77067

== ENCOUNTER 2020-11-14 11:06 | Outpatient (CLI) | payer MEDICARE ==
--- NOTE | 2020-11-14 12:36 | Mammography Report ---
DIGITAL DIAGNOSTIC MAMMOGRAM WITH CAD CONVENTIONAL, 11/14/2020 CLINICAL INFORMATION / INDICATION: Follow-up of indeterminate right breast calcifications. TECHNIQUE: Digital right mammographic imaging was performed. Magnification views were obtained. This examination was interpreted with the benefit of Computer-aided Detection analysis. COMPARISON: 10/15/2020, 09/01/2019 FINDINGS: Breast Density: The breast is almost entirely fatty. A cluster of developing pleomorphic calcifications are seen in the 2:00 position middle depth of the right breast measuring 7.5 x 4.6 mm without a distinct associated mass or architectural distortion. R ight breast nodularity is unchanged. IMPRESSION: Suspicious right breast calcifications. Stereotactic biopsy is recommended. Follow up recommendation: Biopsy BI-RADS Category 4: Suspicious for Malignancy. A "normal" or negative report should not discourage follow up or biopsy of a clinically significant f inding. A written summary of these findings will be mailed to the patient. The patient will be entered into a mammography reporting system which will generate a reminder letter for the patient's next appointmen t at the appropriate interval. According to the [employer], yearly mammograms are recommended starting at age 40 and continuing as long as a woman is in good health. Breast MRI is recommended for women with an kylah roximately 20-25% or greater lifetime risk of breast cancer, including women with a strong family his tory of breast or ovarian cancer and women who have been treated for Hodgkin's disease. Signer Name: Hernando Cortez MD Signed: 11/14/2020 12:32 PM Workstation Name: [id number]
== END 2020-11-14 11:07 | disposition home or self-care (01) ==
LOC: US 11:06
PROVIDERS: ATTEND Internal Medicine
DX: R92.1 Mammographic calcification found on diagnostic imaging of breast (principal); R92.0 Mammographic microcalcification found on diagnostic imaging of breast

== ENCOUNTER 2020-12-11 09:49 | Outpatient (CLI) | payer MEDICARE ==
--- NOTE | 2020-12-11 12:00 | Mammography Report ---
RIGHT DIAGNOSTIC MAMMOGRAM INDICATION: Status post right breast stereotactic biopsy COMPARISON: 11/14/2020, 10/15/2020. FINDINGS: Right breast CC and ML projection mammograms were obtained. A small amount of gas and biops y changes are noted at the site of calcifications from recent stereotactic biopsy. A biopsy marker is NOT identified at the biopsy site. Initial imaging obtained within the stereotactic biopsy room show ed what appeared to be clipped deployment, however the clip malfunctioned and was not deployed. There are a few residual calcifications at the site of biopsy which would be suitable for targeted should wire localization be indicated. IMPRESSION: Right breast mammographic images showing NO biopsy marker at the biopsy site following stereotactic b iopsy. There are a few residual calcifications at the site of biopsy which would be suitable for tar geting should wire localization be indicated. BI-RADS Category 4: Suspicious for Malignancy. Signer Name: Terry Zheng MD Signed: 12/11/2020 11:56 AM Workstation Name: [id number]
--- NOTE | 2020-12-11 12:05 | Mammography Report ---
PERCUTANEOUS STEREOTACTIC-GUIDED RIGHT BREAST BIOPSY WITH MARKER PLACEMENT HISTORY: Right breast calcifications CONSENT: Technique, risks and alternatives were discussed with the patient and informed written conse nt obtained. PROCEDURE: The patient was placed in the prone position on the Siemens biopsy table. The calcifications within t he right breast were targeted mammographically. Processing Rep and stereo pair images were acquired to generat e the computer-derived coordinates for targeting. The skin overlying the chosen biopsy site were chrissie nsed with Betadine. The skin and superficial soft tissues were anesthetized with a small amount of b uffered 1% lidocaine. The deeper soft tissues were anesthetized with buffered 1% lidocaine with epin ephrine. A small dermatotomy was created through which the [facility] biopsy device was placed. Pre and post fire st ereo pair images were acquired to confirm appropriate needle trajectory. Using vacuum assistance, 10 core specimen samples were acquired. It was noted that the majority of the sampling from the needle d id not yield any tissue. Small amount of was obtained and was radiographed which demonstrated calcifi cations within the specimen. It is felt that the needle may have malfunction which did not yield tiss ue cores from every sampling. Placement of a biopsy marker was attempted and subsequent images showed would appear to be clip deployment. However, subsequent mammograms showed no clip was deployed. Manual pressure was applied at the biopsy site to achieve hemostasis. The incision margins were appro ximated with Steri-Strips. Postprocedure care instructions were administered in both verbal and writt en forms. The patient voiced understanding and departed the [facility] in stable, satisfactory con dition. IMPRESSION Technically successful stereotactic biopsy of right breast calcifications. NOTE: NO biopsy marker is located at the site of stereotactic biopsy due to clip malfunction. There a re a few residual calcifications at the biopsy site which would be suitable for targeting showed wire localization be indicated. An addendum will be added to this report once pathology results are available. Signer Name: Terry Zheng MD Signed: 12/11/2020 12:00 PM Workstation Name: [id number]
== END 2020-12-11 09:50 | disposition home or self-care (01) ==
LOC: SPVWC 09:49
PROVIDERS: ATTEND Surgery
DX: R92.1 Mammographic calcification found on diagnostic imaging of breast (principal); D05.11 Intraductal carcinoma in situ of right breast; R92.8 Other abnormal and inconclusive findings on diagnostic imaging of breast; R92.0 Mammographic microcalcification found on diagnostic imaging of breast; N64.89 Other specified disorders of breast; M19.90 Unspecified osteoarthritis, unspecified site; D64.9 Anemia, unspecified; E11.9 Type 2 diabetes mellitus without complications; I10 Essential (primary) hypertension; E78.5 Hyperlipidemia, unspecified; Z79.899 Other long term (current) drug therapy; Z79.84 Long term (current) use of oral hypoglycemic drugs; Z79.82 Long term (current) use of aspirin; Z90.710 Acquired absence of both cervix and uterus; Z98.890 Other specified postprocedural states
CPT/HCPCS: 19081; 77065; 88305; A4648

== ENCOUNTER 2021-02-07 06:35 | Day surgery (SDC) | payer MEDICARE ==
[~2021-02-07 06:35] MED LIST: ACETAMINOPHEN 500 MG TAB PO SCH; GABAPENTIN 300 MG CAP PO NR; LACTATED RINGERS 1,000 ML IV SCH; MIDAZOLAM 2 MG/2 ML INJ IV NR; ceFAZolin/Water 2 GM/20 ML 2 GM/20 ML SYRINGE IV NR; fentaNYL 100 MCG/2 ML INJ IV PRN
[2021-02-07] MEDS ORDERED: LIDOCAINE MPF (2%) 20 MG/1 ML VIAL 5 ML ONE (07:23)
[2021-02-07] MEDS ORDERED: fentaNYL 100 MCG/2 ML INJ ONE (07:24)
[2021-02-07] MEDS ORDERED: propofoL 200 MG/20 ML VIAL IV ONE (07:24)
[2021-02-07] MEDS ORDERED: LIDOCAINE (1%) 10 MG/1 ML VIAL 20 ML MDV ONE ×2 (07:37→08:23)
[2021-02-07] MEDS ORDERED: dexAMETHasone 4 MG/ML VIAL ONE (07:52)
[2021-02-07] MEDS ORDERED: BUPIVACAINE-EPINEPHRINE/PF 0.5%-1:200,000 (30 ML) VIAL INFILTRATI ONE (07:52)
[2021-02-07] MEDS ORDERED: BUPIVACAINE/PF (0.25%) 2.5 MG/ML 30 ML VIAL INFILTRATI ONE ×2 (08:23→09:29)
--- NOTE | 2021-02-07 08:33 | Anesthesia Consultation ---
Anesthesia Consult and Med Hx Date of service: 02/07/21 - Airway Anesthetic Teeth Evaluation: Poor, Partials ROM Head & Neck: Adequate Mental/Hyoid Distance: Adequate Mallampati Class: Class III Intubation Access Assessment: Possibly Difficult - Pre-Operative Health Status ASA Pre-Surgery Classification: ASA3 Proposed Anesthetic Plan: General - Pulmonary Hx Smoking: Yes (former smoker) Hx Respiratory Symptoms: No Hx Sleep Apnea: No - Cardiovascular System Hx Hypertension: Yes (took antihypertensives this morning) Hx Heart Attack/AMI: No Hx Percutaneous Transluminal Coronary Angioplasty (PTCA): No - Central Nervous System CVA: No - Endocrine Hx Renal Disease: No Hx Liver Disease: No Hx Non-Insulin Dependent Diabetes: Yes Hx Thyroid Disease: No - Other Systems Hx Obesity: Yes (BMI 36) - Additional Comments Anesthesia Medical History Comments: No hx anesthetic complications.
--- NOTE | 2021-02-07 08:33 | Anesthesia Day of Surgery ---
Anesthesia Day of Surgery - Day of Surgery Patient Examined: Yes Patient H&P Reviewed: Yes Patient is NPO: Yes
[2021-02-07] MEDS ORDERED: TRIAMCINOLONE 40 MG/1 ML INJ ONE (09:21)
[2021-02-07] MEDS ORDERED: LIDOCAINE (1%) 10 MG/1 ML VIAL 20 ML MDV INFILTRATI ONE (09:29)
[2021-02-07] MEDS ORDERED: TRIAMCINOLONE 40 MG/1 ML INJ IM ONE (09:30)
[2021-02-07] MEDS ORDERED: ONDANSETRON 4 MG/2 ML INJ ONE ×2 (09:44→10:51)
--- NOTE | 2021-02-07 10:17 | Mammography Report ---
MAMMOGRAPHIC GUIDED RIGHT BREAST NEEDLE LOCALIZATION, 02/07/2021 CLINICAL INFORMATION / INDICATION: RT BREAST CALCIFICATIONS. COMPARISON: 12/11/2020 PROCEDURE: Risks, benefits and indications to the procedure were discussed with the patient. The patient agreed to proceed with both verbal and written consent. A timeout procedure was performed with 2 patient tigre ntifiers. The breast was prepped in the usual sterile fashion. Approximately 5cc of Lidocaine was used for loca l anesthesia. Under direct digital mammographic guidance, a localization wire was placed in satisfact ory position with distal tip traversing the targeted area. Post-procedure mammogram confirms satisfac tory positioning of the localization wire. The wire was secured to the skin with a sterile dressing. The patient tolerated procedure without difficulty. No complications were encountered. IMPRESSION: 1. Satisfactory mammographic guided wire localization. Signer Name: Dwayne Martinez MD Signed: 02/07/2021 10:13 AM Workstation Name: [id number]
[2021-02-07] MEDS ORDERED: dexAMETHasone 20 MG/5 ML VIAL ONE (10:19)
[2021-02-07] MEDS ORDERED: GLYCOPYRROLATE 0.4 MG/2 ML INJ ONE (10:23)
[2021-02-07] MEDS ORDERED: NEOSTIGMINE 10MG/10 ML INJ MDV ONE (10:23)
[2021-02-07] MEDS ORDERED: ROCURONIUM 50 MG/5 ML INJ IV ONE (10:30)
--- NOTE | 2021-02-07 10:40 | Operative Report ---
Operative Report Operative Report: Operative Report: February 07, 2021 Preoperative diagnosis: Right breast cancer of the upper outer quadrant Postoperative diagnosis: Same Procedure: Right needle localization partial mastectomy of the upper outer quadrant Surgeon: Yane Mi MD Childhood Development Teacher: Hazel Uriarte MD Anesthesia: General Findings: Right wire and microcalcifications present within radiograph specimen Complications: None EBL: Minimal, less than 50 cc Disposition: PACU in good condition Indications for operative procedure: This is a 70 year old lady with newly diagnosed right breast cancer of the upper outer quadrant, Stage 0, [id number] ER/AK positive. Recommendations are to proceed with breast conservation. 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 She understands the role of adjuvant radiation therapy. She wished to proceed with the above procedure. Procedure in detail: The patient was taken to radiology for wire placement for localization known area of cancer. Patient was then taken to the operating room. Gen. anesthesia was administered. Right breast and axilla were prepped and draped in the normal sterile operative fashion. The wire was identified. Timeout was performed. Attention was then taken towards the right breast. Lateral breast incision around 9:00 position was made with a 15 blade knife and dissection taken down to subcutaneous tissues. First began raising of the lateral flap with removal of the wire from the skin with dissection taken down to the pectoralis muscle and past the wire, followed by raising of the medial flap, superior flap and inferior flap with all flaps taken down past the wire and posteriorly to the pectoralis muscle. The breast area of concern was appropriately removed posteriorly from the pectoralis muscle with the aid of the Bovie cautery. The wire was not encountered. Specimen was marked and then sent to pathology and radiology; radiograph specimen with wire and microcalcifications present. Breast cavity was irrigated and hemostasis was obtained. Then proceeded with complex closure. The posterior deep breast tissues were approximated and closed using interrupted 3-0 Vicryl. The subcutaneous tissues were approximated and closed using interrupted 3-0 Vicryl followed by closing of the skin with a running 4-0 Monocryl and skin affix. The patient tolerated surgery very well and she was awaken from anesthesia without any complication and transported to PACU in good condition.
--- NOTE | 2021-02-07 10:44 | Short Stay Summary ---
Short Stay Documentation Date of service: 02/07/21 - History H&P: obtained from office - Allergies and Medications Current Medications: Allergies No Known Allergies Allergy (Verified 01/30/21 16:55) Home Medications Medication Instructions Recorded Confirmed Last Taken Type metFORMIN [Glucophage] 500 mg PO DAILY 01/04/15 02/07/21 02/06/21 09:00 History Brimonidine/Timolol 0.2-0.5% 1 drop OU BID 01/30/21 02/07/21 02/06/21 17:00 History [Combigan 0.2-0.5%] Ergocalciferol(Vitamin D2)(Nf) 400 unit PO DAILY 01/30/21 02/07/21 02/06/21 09:00 History [Vitamin D (Nf)] amLODIPine [Norvasc] 10 mg PO DAILY 01/30/21 02/07/21 02/07/21 06:00 History Active Medications Acetaminophen (Acetaminophen 500 Mg Tab) 1,000 mg PO PREOP DUNIA Last Admin: 02/07/21 07:10 Dose: 1,000 mg Documented by: Fentanyl (Fentanyl 100 Mcg/2 Ml Inj) 100 mcg IV ONCE PRN PRN Reason: sedation for nerve block Gabapentin (Gabapentin 300 Mg Cap) 300 mg PO PREOP NR Stop: 02/07/21 23:00 Last Admin: 02/07/21 08:20 Dose: 300 mg Documented by: Cefazolin Sodium (Ancef/Sterile Water 2 Gm/20 Ml) 2 gm in 20 mls @ 80 mls/hr IV PREOP NR; Protocol Stop: 02/07/21 23:59 Lactated Ringer's (Lactated Ringers) 1,000 mls @ 100 mls/hr IV DIRECT DUNIA Stop: 02/07/21 23:59 Last Admin: 02/07/21 08:25 Dose: 100 mls/hr Documented by: Midazolam HCl (Midazolam 2 Mg/2 Ml Inj) 2 mg IV PREOP NR Stop: 02/07/21 23:01 Last Admin: 02/07/21 08:30 Dose: 1 mg Documented by: - Brief post op/procedure progress note Date of procedure: 02/07/21 Pre-op diagnosis: Right breast cancer of upper outer quadrant Post-op diagnosis: same Procedure: Right needle localization partial mastectomy Anesthesia: GETA Findings: wire and microcalcifications present Surgeon: XAVIER TONY Estimated blood loss: minimal Pathology: list Specimen disposition: to lab Condition: stable - Disposition Condition at discharge: Good Disposition: DC-01 TO HOME OR SELFCARE Short Stay Discharge Plan Activity: other (no heavy lifting) Diet: regular Wound: keep clean and dry (may shower in 48 hours; no baths, pools or lakes; wear breast binder) Follow up with: XAVIER TONY MD [Staff Physician] - 7 Days
--- NOTE | 2021-02-07 11:13 | Mammography Report ---
MAMMOGRAPHY WIRE LOCALIZATION SPECIMEN OF THE RIGHT BREAST INDICATION: Patient had wire localization earlier today, current exam is to evaluate specimen. COMPARISON: Earlier today FINDINGS: SPECIMEN RADIOGRAPH: The previously localized target area is present in its entirety in the submitted specimen. The localization wire is present. IMPRESSION: Radiographic evidence of satisfactory excision of the target area. Signer Name: Dwayne Martinez MD Signed: 02/07/2021 11:09 AM Workstation Name: [id number]
[2021-02-07 12:19] VITALS: BP 124/69
--- NOTE | 2021-02-07 13:20 | Post Anesthesia Evaluation ---
- Post Anesthesia Evaluation Patient Participated: Yes Airway Patent: Yes Stable Respiratory Function: Yes Nausea/Vomiting: No Temp > 96.8F: Yes Pain Manageable: Yes Adequeate Hydration: Yes Anesthesia Complications: No Block Receding Appropriately: Not Applicable
== END 2021-02-07 12:45 | disposition home or self-care (01) ==
LOC: OR 06:35
PROVIDERS: ATTEND Surgery
DX: C50.411 Malignant neoplasm of upper-outer quadrant of right female breast (principal); Z20.822 Contact with and (suspected) exposure to COVID-19; I10 Essential (primary) hypertension; E11.9 Type 2 diabetes mellitus without complications; E78.5 Hyperlipidemia, unspecified; E66.9 Obesity, unspecified; M19.90 Unspecified osteoarthritis, unspecified site; Z79.899 Other long term (current) drug therapy; Z79.84 Long term (current) use of oral hypoglycemic drugs; Z87.891 Personal history of nicotine dependence; Z98.41 Cataract extraction status, right eye; Z98.42 Cataract extraction status, left eye; Z90.710 Acquired absence of both cervix and uterus; Z98.890 Other specified postprocedural states; Z72.89 Other problems related to lifestyle; Z68.36 Body mass index [BMI] 36.0-36.9, adult
CPT/HCPCS: 19281; 19301; 76098; 82962; 88307; A4648; J0690; J1100; J2250; J2405; J2704; J2710; J3010; J3301; J7120; U0003

== ENCOUNTER 2021-12-19 09:56 | Outpatient (CLI) | payer MEDICARE ==
[2021-12-19 11:49] LABS: Blood Urea Nitrogen 20 mg/dL (7-17)
--- NOTE | 2021-12-19 14:11 | Cat Scan Report ---
CT CHEST WITH CONTRAST INDICATION / CLINICAL INFORMATION: HYPOXEMIA OMNI 300 100- ML. TECHNIQUE: Axial CT images were obtained through the chest after 100 cc of Omnipaque [address] scans at this location are performed using CT dose reduction for ALARA by means of automated exposure control. COMPARISON: None available. FINDINGS: HEART: No significant abnormality. CORONARY ARTERY CALCIFICATION: None. THORACIC AORTA: Mild atherosclerotic calcification without acute abnormality. MEDIASTINUM / NANCY: No significant abnormality. PLEURA: No pleural effusion. No pneumothorax. LUNGS: No acute air space or interstitial disease. Within the right middle lobe there is a 1.6 x 1.4 x 1.0 cm solid pulmonary nodule. ADDITIONAL FINDINGS: None. UPPER ABDOMEN: No significant abnormality. SKELETAL SYSTEM: No significant abnormality. IMPRESSION: Single incidental pulmonary nodule(s) in the right middle lobe measuring 15 mm with solid characteris tics. Recommendation according to Fleischner Society 2017 Guidelines: Low Risk or High Risk Patient: Consider CT at 3 months, PET/CT, or tissue sampling. Signer Name: Gerard To DO Signed: 12/19/2021 2:06 PM Workstation Name: [id number]
== END 2021-12-19 09:57 | disposition home or self-care (01) ==
LOC: CT 09:56
PROVIDERS: ATTEND Internal Medicine
DX: R91.1 Solitary pulmonary nodule (principal); R09.02 Hypoxemia; I25.10 Atherosclerotic heart disease of native coronary artery without angina pectoris
CPT/HCPCS: 36415; 71260; 82565; 84520; Q9967

== ENCOUNTER 2022-03-20 09:11 | Outpatient (CLI) | payer MEDICARE ==
--- NOTE | 2022-03-20 10:57 | XRay Report ---
CHEST 2 VIEWS INDICATION / CLINICAL INFORMATION: R09.02 HYPOXEMIA. COMPARISON: 08/30/2017 FINDINGS: SUPPORT DEVICES: None. HEART / MEDIASTINUM: No significant abnormality. LUNGS / PLEURA: No significant pulmonary or pleural abnormality. No pneumothorax. ADDITIONAL FINDINGS: No significant additional findings. IMPRESSION: 1. No acute findings. Signer Name: Gerard To DO Signed: 03/20/2022 10:53 AM Workstation Name: [id number]
== END 2022-03-20 09:12 | disposition home or self-care (01) ==
LOC: XRAY 09:11
PROVIDERS: ATTEND Internal Medicine
DX: R09.02 Hypoxemia (principal)
CPT/HCPCS: 71046